=== PATIENT | male | born 1975 | race Caucasian/White ===

== ENCOUNTER 2016-12-15 23:54 | Inpatient (IN) | payer MEDICAID ==
[~2016-12-15] VITALS: Ht 182.9 cm; Wt 112.8 kg
[~2016-12-15 23:54] MED LIST: DOCU250C91 PO; QUET300T2 PO; SERT100T12 PO
[2016-12-16 04:03] VITALS: BP 125/72
[2016-12-16 08:18] VITALS: BP 105/60
[2016-12-16 09:07] LABS: APPEARANCE,URINE CLEAR (CLEAR); GLUCOSE, URINE (UA) NEGATIVE (NEGATIVE); KETONES,URINE >=80 mg/dL (NEGATIVE); LEUKOCYTE ESTERASE ,URINE NEGATIVE (NEGATIVE); OCCULT BLOOD,URINE NEGATIVE (NEGATIVE); PROTEIN,URINE TRACE (NEGATIVE)
[2016-12-16] MEDS: NICOTINE 21 MG/24 HOUR PATCH TD SCH (09:58)
[2016-12-16] MEDS: BACITRACIN 28.4 GM OINTMENT TP SCH ×2 (10:17→16:38)
[2016-12-16 10:38] LABS: RBC,URINE None Seen /HPF (0-2)
[2016-12-16 10:39] LABS: WBC,URINE None Seen /HPF (0-5)
[2016-12-16 10:40] LABS: SQUAMOUS EPITHELIAL CELL,UR Rare /LPF (None Seen)
[2016-12-16] MEDS: LORazepam 2 MG TABLET PO PRN ×2 (11:54→16:08)
[2016-12-16 16:01] VITALS: BP 123/75
[2016-12-16] MEDS: QUEtiapine FUMARATE 100 MG TABLET PO PRN (18:09)
[2016-12-16] MEDS: QUEtiapine FUMARATE 300 MG TABLET PO SCH (20:30)
[2016-12-16] MEDS: ZOLPIDEM TARTRATE 10 MG TABLET PO PRN (21:23)
[2016-12-17 03:33] VITALS: BP 119/69
[2016-12-17] MEDS: LORazepam 2 MG TABLET PO PRN (03:39)
[2016-12-17 08:22] LABS: BASOPHILS % (AUTO) 0.5 % (0.0-2.0); EOSINOPHILS % (AUTO) 6.8 % (1.0-6.0); HEMATOCRIT 38.7 % (41-53); HEMOGLOBIN 12.7 g/dL (13.5-17.5); LYMPHOCYTES # (AUTO) 2.4 K/uL (1.0-4.8); LYMPHOCYTES % (AUTO) 43.1 % (22.0-44.0); MEAN CORPUSCULAR HEMOGLOBIN 29.3 pg (26.0-34.0); MEAN CORPUSCULAR HGB CONC 32.8 G/dL (31.0-37.0); MEAN CORPUSCULAR VOLUME 89 fL (80-100); MONOCYTES # (AUTO) 0.3 K/uL (0.1-1.0); MONOCYTES % (AUTO) 5.4 % (2.0-9.0); NEUTROPHILS # (AUTO) 2.4 K/uL (1.8-7.7); NEUTROPHILS % (AUTO) 44.2 % (40.0-70.0); PLATELET COUNT (AUTO) 263 K/uL (150-450); RED BLOOD CELL COUNT(AUTO) 4.33 MIL/uL (4.50-5.90); RED CELL DISTRIBUTION WIDTH 13.8 % (11.5-14.5); WHITE BLOOD COUNT (AUTO) 5.5 K/uL (4.5-11.0)
[2016-12-17 08:36] LABS: ALANINE AMINOTRANSFERASE 25 U/L (12-78); ALBUMIN 3.1 g/dL (3.4-5.0); ANION GAP 8 mmol/L (8-16); ASPARTATE AMINOTRANSFERASE 17 U/L (15-37); BILIRUBIN,TOTAL 0.2 mg/dL (0.1-1.0); CALCIUM, TOTAL 8.2 mg/dL (8.8-10.5); CARBON DIOXIDE 26 mmol/L (22-29); CHLORIDE 106 mmol/L (98-107); CREATININE 0.67 mg/dL (0.60-1.30); GLOMERULAR FILTR. RATE CALC > 60 mL/min (>60); POTASSIUM 4.1 mmol/L (3.5-5.1); SODIUM SERUM 140 mmol/L (136-145); TOTAL PROTEIN, SERUM 5.9 g/dL (6.4-8.2); UREA NITROGEN, BLOOD 12 mg/dL (7-18)
[2016-12-17 08:58] VITALS: BP 100/68
[2016-12-17] MEDS: NICOTINE 21 MG/24 HOUR PATCH TD SCH (09:12)
[2016-12-17] MEDS: BACITRACIN 28.4 GM OINTMENT TP SCH ×2 (09:12→16:11)
[2016-12-17] MEDS: SERTRALINE HCL 100 MG TABLET PO SCH (09:12)
[2016-12-17 16:15] VITALS: BP 117/69
[2016-12-17 16:53] VITALS: BP 120/72
[2016-12-17] MEDS: IBUPROFEN 600 MG TABLET PO PRN (16:55)
[2016-12-17] MEDS: QUEtiapine FUMARATE 300 MG TABLET PO SCH (20:07)
[2016-12-18 00:23] VITALS: BP 126/64
[2016-12-18] MEDS: NICOTINE 21 MG/24 HOUR PATCH TD SCH (08:27)
[2016-12-18] MEDS: BACITRACIN 28.4 GM OINTMENT TP SCH ×2 (08:27→17:12)
[2016-12-18] MEDS: SERTRALINE HCL 100 MG TABLET PO SCH (08:27)
[2016-12-18 08:53] VITALS: BP 116/61
[2016-12-18] MEDS: LORazepam 2 MG TABLET PO PRN ×2 (10:07→20:06)
[2016-12-18] MEDS: QUEtiapine FUMARATE 100 MG TABLET PO PRN (10:07)
[2016-12-18 16:00] VITALS: BP 118/64
[2016-12-18] MEDS: QUEtiapine FUMARATE 300 MG TABLET PO SCH (20:06)
[2016-12-19 06:36] VITALS: BP 108/78
[2016-12-19] MEDS: NICOTINE 21 MG/24 HOUR PATCH TD SCH (08:23)
[2016-12-19] MEDS: SERTRALINE HCL 100 MG TABLET PO SCH (08:23)
[2016-12-19] MEDS: BACITRACIN 28.4 GM OINTMENT TP SCH ×2 (08:24→17:21)
[2016-12-19] MEDS: LORazepam 2 MG TABLET PO PRN ×2 (10:22→16:40)
[2016-12-19 16:00] VITALS: BP 114/79
[2016-12-19] MEDS: QUEtiapine FUMARATE 100 MG TABLET PO PRN (16:40)
[2016-12-19] MEDS: IBUPROFEN 600 MG TABLET PO PRN (17:22)
[2016-12-19] MEDS: QUEtiapine FUMARATE 300 MG TABLET PO SCH (21:20)
[2016-12-20 00:18] VITALS: BP 101/62
[2016-12-20 08:24] VITALS: BP 118/78
[2016-12-20] MEDS: NICOTINE 21 MG/24 HOUR PATCH TD SCH (08:34)
[2016-12-20] MEDS: SERTRALINE HCL 100 MG TABLET PO SCH (08:34)
[2016-12-20] MEDS: DOCUSATE SODIUM 250 MG CAPSULE PO SCH (08:34)
[2016-12-20] MEDS: BACITRACIN 28.4 GM OINTMENT TP SCH ×2 (11:57→16:04)
[2016-12-20] MEDS: LORazepam 2 MG TABLET PO PRN ×2 (11:58→17:30)
[2016-12-20] MEDS: QUEtiapine FUMARATE 100 MG TABLET PO PRN ×2 (11:58→17:31)
[2016-12-20 16:02] VITALS: BP 107/57
[2016-12-20 17:30] VITALS: BP 110/79
[2016-12-20] MEDS: QUEtiapine FUMARATE 300 MG TABLET PO SCH (20:03)
[2016-12-20] MEDS: ZOLPIDEM TARTRATE 10 MG TABLET PO PRN (20:30)
[2016-12-21 07:30] VITALS: BP 118/66
[2016-12-21 08:22] VITALS: BP 101/77
[2016-12-21] MEDS: BACITRACIN 28.4 GM OINTMENT TP SCH (08:38)
[2016-12-21] MEDS: SERTRALINE HCL 100 MG TABLET PO SCH (08:38)
[2016-12-21] MEDS: NICOTINE 21 MG/24 HOUR PATCH TD SCH (08:38)
[2016-12-21] MEDS: DOCUSATE SODIUM 250 MG CAPSULE PO SCH (08:38)
[2016-12-21] MEDS: LORazepam 2 MG TABLET PO PRN (09:17)
[2016-12-21] MEDS: IBUPROFEN 600 MG TABLET PO PRN (12:42)
== END 2016-12-21 13:00 | disposition home or self-care (01) | DRG 750 ==
LOC: B2S 12-16 03:29
PROVIDERS: ADMIT Psychiatry & Neurology Psychiatry; ATTEND Psychiatry & Neurology Psychiatry
DX: F25.9 Schizoaffective disorder, unspecified (principal); R45.851 Suicidal ideations; E78.5 Hyperlipidemia, unspecified; F17.200 Nicotine dependence, unspecified, uncomplicated
CPT/HCPCS: 80307; 87081

== ENCOUNTER 2017-08-24 13:19 | Inpatient (IN) | payer MEDICAID ==
[~2017-08-24] VITALS: Ht 188 cm; Wt 115.7 kg
[~2017-08-24 13:19] MED LIST changes: +CLON1 PO; -DOCU250C91 PO; +QUET200T PO; -QUET300T2 PO; +RANI150T7 PO
[2017-08-24 13:38] VITALS: BP 125/72
[2017-08-24] MEDS ORDERED: ZOLPIDEM TARTRATE 10 MG TABLET PO PRN (13:45)
[2017-08-24] MEDS ORDERED: BUPR100 PO (14:38)
[2017-08-24] MEDS ORDERED: PROP20 PO (14:38)
[2017-08-24] MEDS ORDERED: PRAZ2 PO (14:38)
[2017-08-24] MEDS ORDERED: BUPR-93 PO (14:49)
[2017-08-24] MEDS ORDERED: PRAZ1 PO (14:49)
[2017-08-24] MEDS ORDERED: INFLUENZA VIRUS VACCINE QVS 2017-18 (3YR+)/PF 60 MCG/0.5 ML SYRINGE IM ONE (15:00)
[2017-08-24 15:08] VITALS: BP 120/72
[2017-08-24 16:11] VITALS: BP 131/74
[2017-08-24] MEDS ORDERED: HALOPERIDOL LACTATE 5 MG/ML VIAL IM ONE (16:30)
[2017-08-24] MEDS ORDERED: DiphenhydrAMINE HCL 50 MG/ML VIAL IM ONE (16:30)
[2017-08-24] MEDS ORDERED: LORazepam 2 MG/ML VIAL IM ONE (16:30)
[2017-08-25 06:01] VITALS: BP 119/71
[2017-08-25 07:44] LABS: BASOPHILS # (AUTO) 0.02 K/uL (0.00-0.20); BASOPHILS % (AUTO) 0.3 % (0.0-2.0); EOSINOPHILS # (AUTO) 0.24 K/uL (0.00-0.70); EOSINOPHILS % (AUTO) 3.47 % (1.0-6.0); HEMATOCRIT 41.6 % (41-53); HEMOGLOBIN 14.3 g/dL (13.5-17.5); HEMOGLOBIN A1C 5.8 % (4.5-6.2); LYMPHOCYTES # (AUTO) 2.5 K/uL (1.0-4.8); MEAN CORPUSCULAR HEMOGLOBIN 30.1 pg (26.0-34.0); MEAN CORPUSCULAR HGB CONC 34.4 G/dL (31.0-37.0); MEAN CORPUSCULAR VOLUME 87 fL (80-100); MONOCYTES # (AUTO) 0.6 K/uL (0.1-1.0); MONOCYTES % (AUTO) 8.7 % (2.0-9.0); NEUTROPHILS # (AUTO) 3.5 K/uL (1.8-7.7); NEUTROPHILS % (AUTO) 51.6 % (40.0-70.0); PLATELET COUNT (AUTO) 294 K/uL (150-450); RED BLOOD CELL COUNT(AUTO) 4.76 MIL/uL (4.50-5.90); RED CELL DISTRIBUTION WIDTH 13.2 % (11.5-14.5)
[2017-08-25 07:49] LABS: AMPHET/METH SCREEN,URINE POSITIVE (NEGATIVE); BARBITURATE SCREEN, URINE NEGATIVE (NEGATIVE); BENZODIAZEPINES SCREEN,URINE NEGATIVE (NEGATIVE); CANNABINOID SCREEN,URINE NEGATIVE (NEGATIVE); COCAINE SCREEN,URINE NEGATIVE (NEGATIVE); METHADONE SCREEN, URINE NEGATIVE (NEGATIVE); OPIATE SCREEN,URINE NEGATIVE (NEGATIVE); PHENCYCLIDINE SCREEN,URINE NEGATIVE (NEGATIVE)
[2017-08-25 07:58] LABS: ALANINE AMINOTRANSFERASE 22 U/L (12-78); ALBUMIN 3.3 g/dL (3.4-5.0); ALKALINE PHOSPHATASE 71 U/L (46-116); ANION GAP 9 mmol/L (8-16); ASPARTATE AMINOTRANSFERASE 11 U/L (15-37); BILIRUBIN,TOTAL 0.5 mg/dL (0.1-1.0); CALCIUM, TOTAL 8.6 mg/dL (8.8-10.5); CARBON DIOXIDE 25 mmol/L (22-29); CHLORIDE 105 mmol/L (98-107); CHOL/HDL RATIO 5.1 (4.2-7.3); CHOLESTEROL 173 mg/dL (131-200); CREATININE 0.83 mg/dL (0.60-1.30); GLOMERULAR FILTR. RATE CALC > 60 mL/min (>60); GLUCOSE,RANDOM 87 mg/dL (70-110); HDL CHOLESTEROL 34 mg/dL (40-60); LDL CHOL (CALC.) 121 mg/dL (0-130); POTASSIUM 3.9 mmol/L (3.5-5.1); SODIUM SERUM 139 mmol/L (136-145); THYROID STIMULATING HORMONE 0.87 uIU/mL (0.36-3.74); TOTAL PROTEIN, SERUM 6.9 g/dL (6.4-8.2); TRIGLYCERIDES 92 mg/dL (15-150); UREA NITROGEN, BLOOD 11 mg/dL (7-18)
[2017-08-25 07:59] LABS: APPEARANCE,URINE CLEAR (CLEAR); BILIRUBIN,URINE NEGATIVE (NEGATIVE); GLUCOSE, URINE (UA) NEGATIVE (NEGATIVE); KETONES,URINE NEGATIVE (NEGATIVE); LEUKOCYTE ESTERASE ,URINE NEGATIVE (NEGATIVE); NITRATE,URINE NEGATIVE (NEGATIVE); OCCULT BLOOD,URINE NEGATIVE (NEGATIVE); PROTEIN,URINE NEGATIVE (NEGATIVE); UROBILINOGEN,URINE 0.2 mg/dL (<=1.0)
[2017-08-25 08:28] VITALS: BP 138/73
[2017-08-25] MEDS ORDERED: ACETAMINOPHEN 325 MG TABLET PO PRN (08:30)
[2017-08-25] MEDS ORDERED: IBUPROFEN 600 MG TABLET PO PRN (08:30)
[2017-08-25] MEDS ORDERED: MAG HYDROX/AL HYDROX/SIMETH ES 30 ML SUSPENSION UDCUP PO PRN (08:30)
[2017-08-25] MEDS ORDERED: PETROLATUM,WHITE 71 GM JELLY TP PRN (08:30)
[2017-08-25] MEDS ORDERED: LOPERAMIDE HCL 2 MG CAPSULE PO PRN (08:30)
[2017-08-25] MEDS ORDERED: ALBUTEROL SULFATE HFA 90 MCG/PUFF 8 GM INHALER IH PRN (08:30)
[2017-08-25] MEDS ORDERED: ONDANSETRON HCL 4 MG TABLET PO PRN (08:30)
[2017-08-25] MEDS ORDERED: BACITRACIN 28.4 GM OINTMENT TP PRN (08:30)
[2017-08-25] MEDS ORDERED: CloNIDine HCL 0.1 MG TABLET PO PRN (08:30)
[2017-08-25] MEDS ORDERED: BENZOCAINE/MENTHOL LOZENGE MM PRN (08:30)
[2017-08-25] MEDS: SERTRALINE HCL 100 MG TABLET PO SCH (11:41)
[2017-08-25] MEDS: LORazepam 2 MG TABLET PO PRN (11:41)
[2017-08-25] MEDS: HALOPERIDOL 5 MG TABLET PO PRN (11:59)
[2017-08-25 16:31] VITALS: BP 116/67
[2017-08-25] MEDS: QUEtiapine FUMARATE 200 MG TABLET PO SCH (20:40)
[2017-08-26 00:30] VITALS: BP 120/60
[2017-08-26 08:37] VITALS: BP_SYST 118; BP_SYST 99; BP_DIAS 48; BP_DIAS 70
[2017-08-26] MEDS: SERTRALINE HCL 100 MG TABLET PO SCH (09:31)
[2017-08-26] MEDS: MAGNESIUM HYDROXIDE SUSPENSION 30 ML UDCUP PO PRN (09:46)
[2017-08-26 16:18] VITALS: BP 130/65
[2017-08-26] MEDS: QUEtiapine FUMARATE 200 MG TABLET PO SCH (20:16)
[2017-08-27 05:41] VITALS: BP 100/66
[2017-08-27 07:59] VITALS: BP 113/67
[2017-08-27] MEDS: SERTRALINE HCL 100 MG TABLET PO SCH (08:13)
[2017-08-27 10:43] VITALS: BP 113/67
[2017-08-27] MEDS: LORazepam 2 MG TABLET PO PRN (11:17)
[2017-08-27] MEDS: MAGNESIUM HYDROXIDE SUSPENSION 30 ML UDCUP PO PRN (11:17)
[2017-08-27] MEDS: HALOPERIDOL 5 MG TABLET PO PRN (12:00)
[2017-08-27 16:02] VITALS: BP 126/78
[2017-08-27] MEDS: QUEtiapine FUMARATE 200 MG TABLET PO SCH (20:08)
[2017-08-28 05:54] VITALS: BP 103/72
[2017-08-28 08:22] VITALS: BP 107/68
[2017-08-28] MEDS: SERTRALINE HCL 100 MG TABLET PO SCH (08:38)
[2017-08-28] MEDS: NICOTINE 21 MG/24 HOUR PATCH TD SCH (08:38)
[2017-08-28] MEDS: LORazepam 2 MG TABLET PO PRN ×2 (10:41→17:06)
[2017-08-28] MEDS: MAGNESIUM HYDROXIDE SUSPENSION 30 ML UDCUP PO PRN (17:07)
[2017-08-28 17:45] VITALS: BP 115/76
[2017-08-28] MEDS: QUEtiapine FUMARATE 200 MG TABLET PO SCH (20:08)
[2017-08-29 00:13] VITALS: BP 101/61
[2017-08-29 08:24] VITALS: BP 122/71
[2017-08-29] MEDS: NICOTINE 21 MG/24 HOUR PATCH TD SCH (08:55)
[2017-08-29] MEDS: SERTRALINE HCL 100 MG TABLET PO SCH (08:55)
[2017-08-29] MEDS: MAGNESIUM HYDROXIDE SUSPENSION 30 ML UDCUP PO PRN (08:55)
[2017-08-29] MEDS: LORazepam 2 MG TABLET PO PRN (08:55)
== END 2017-08-29 13:05 | disposition home or self-care (01) | DRG 750 ==
LOC: B2S 13:42 → EDSTATUS 13:47
PROVIDERS: ADMIT Psychiatry & Neurology Psychiatry; ATTEND Psychiatry & Neurology Psychiatry
DX: F25.9 Schizoaffective disorder, unspecified (principal); E78.5 Hyperlipidemia, unspecified; E66.9 Obesity, unspecified; F12.90 Cannabis use, unspecified, uncomplicated; F17.210 Nicotine dependence, cigarettes, uncomplicated; G47.00 Insomnia, unspecified; K21.9 Gastro-esophageal reflux disease without esophagitis; K59.00 Constipation, unspecified; Z68.32 Body mass index [BMI] 32.0-32.9, adult
CPT/HCPCS: 83036; 84439; 84443; 90471; J1200; J1630; J2060

== ENCOUNTER 2017-10-18 17:30 | Inpatient (IN) | payer MEDICAID ==
[~2017-10-18] VITALS: Ht 182.9 cm; Wt 109.3 kg
[~2017-10-18 17:30] MED LIST changes: -CLON1 PO; -RANI150T7 PO
[2017-10-18 18:24] VITALS: BP 120/74
[2017-10-18] MEDS: LORazepam 2 MG TABLET PO PRN (18:41)
[2017-10-18] MEDS ORDERED: INFLUENZA VIRUS VACCINE QVS 2017-18 (3YR+)/PF 60 MCG/0.5 ML SYRINGE IM ONE (18:45)
[2017-10-18] MEDS ORDERED: ACETAMINOPHEN 325 MG TABLET PO PRN (19:30)
[2017-10-18] MEDS: QUEtiapine FUMARATE 200 MG TABLET PO SCH (21:00)
[2017-10-19 06:02] VITALS: BP 118/65
[2017-10-19 08:00] VITALS: BP 108/55
[2017-10-19] MEDS ORDERED: MAG HYDROX/AL HYDROX/SIMETH ES 30 ML SUSPENSION UDCUP PO PRN (08:15)
[2017-10-19] MEDS ORDERED: LOPERAMIDE HCL 2 MG CAPSULE PO PRN (08:15)
[2017-10-19] MEDS ORDERED: MAGNESIUM HYDROXIDE SUSPENSION 30 ML UDCUP PO PRN (08:15)
[2017-10-19] MEDS ORDERED: ALBUTEROL SULFATE HFA 90 MCG/PUFF 8 GM INHALER IH PRN (08:15)
[2017-10-19] MEDS ORDERED: PETROLATUM,WHITE 71 GM JELLY TP PRN (08:15)
[2017-10-19] MEDS ORDERED: ONDANSETRON HCL 4 MG TABLET PO PRN (08:15)
[2017-10-19] MEDS ORDERED: CloNIDine HCL 0.1 MG TABLET PO PRN (08:15)
[2017-10-19] MEDS ORDERED: BACITRACIN 28.4 GM OINTMENT TP PRN (08:15)
[2017-10-19] MEDS ORDERED: BENZOCAINE/MENTHOL LOZENGE MM PRN (08:15)
[2017-10-19] MEDS ORDERED: ACETAMINOPHEN 325 MG TABLET PO PRN (08:15)
[2017-10-19 08:21] LABS: BASOPHILS % (AUTO) 0.5 % (0.0-2.0); HEMATOCRIT 39.7 % (41-53); HEMOGLOBIN 13.7 g/dL (13.5-17.5); LYMPHOCYTES # (AUTO) 1.9 K/uL (1.0-4.8); LYMPHOCYTES % (AUTO) 26.8 % (22.0-44.0); MEAN CORPUSCULAR HEMOGLOBIN 29.8 pg (26.0-34.0); MEAN CORPUSCULAR HGB CONC 34.4 G/dL (31.0-37.0); MEAN CORPUSCULAR VOLUME 87 fL (80-100); MONOCYTES # (AUTO) 0.6 K/uL (0.1-1.0); MONOCYTES % (AUTO) 8.3 % (2.0-9.0); NEUTROPHILS % (AUTO) 58.4 % (40.0-70.0); PLATELET COUNT (AUTO) 307 K/uL (150-450); RED BLOOD CELL COUNT(AUTO) 4.57 MIL/uL (4.50-5.90); RED CELL DISTRIBUTION WIDTH 13.8 % (11.5-14.5)
[2017-10-19 09:12] LABS: ALANINE AMINOTRANSFERASE 18 U/L (12-78); ALBUMIN 3.3 g/dL (3.4-5.0); ALKALINE PHOSPHATASE 88 U/L (46-116); ANION GAP 9 mmol/L (8-16); ASPARTATE AMINOTRANSFERASE 15 U/L (15-37); BILIRUBIN,TOTAL 0.5 mg/dL (0.1-1.0); CALCIUM, TOTAL 8.6 mg/dL (8.8-10.5); CARBON DIOXIDE 25 mmol/L (22-29); CHLORIDE 105 mmol/L (98-107); CHOLESTEROL 155 mg/dL (131-200); CREATININE 0.67 mg/dL (0.60-1.30); FREE T4 (FREE THYROXINE) 0.85 ng/dL (0.76-1.46); GLOMERULAR FILTR. RATE CALC > 60 mL/min (>60); GLUCOSE,RANDOM 81 mg/dL (70-110); HDL CHOLESTEROL 31 mg/dL (40-60); LDL CHOL (CALC.) 106 mg/dL (0-130); POTASSIUM 4.4 mmol/L (3.5-5.1); SODIUM SERUM 139 mmol/L (136-145); THYROID STIMULATING HORMONE 1.08 uIU/mL (0.36-3.74); TOTAL PROTEIN, SERUM 6.3 g/dL (6.4-8.2); TRIGLYCERIDES 92 mg/dL (15-150); UREA NITROGEN, BLOOD 14 mg/dL (7-18)
[2017-10-19] MEDS: SERTRALINE HCL 100 MG TABLET PO SCH (09:50)
[2017-10-19 09:55] LABS: HEMOGLOBIN A1C 5.7 % (4.5-6.2)
[2017-10-19 11:50] VITALS: BP 109/64
[2017-10-19] MEDS: LORazepam 2 MG TABLET PO PRN (11:50)
[2017-10-19] MEDS: IBUPROFEN 600 MG TABLET PO PRN (11:50)
[2017-10-19] MEDS ORDERED: ACYCLOVIR 200 MG CAPSULE PO SCH (12:15)
[2017-10-19] MEDS: BACITRACIN 28.4 GM OINTMENT TP SCH (14:57)
[2017-10-19] MEDS: CEPHALEXIN MONOHYDRATE 500 MG CAPSULE PO SCH (16:33)
[2017-10-19] MEDS: ACYCLOVIR 200 MG CAPSULE PO SCH (16:34)
[2017-10-19] MEDS: DOCOSANOL 10% 2 GM CREAM TP SCH (17:00)
[2017-10-19] MEDS: QUEtiapine FUMARATE 200 MG TABLET PO SCH (20:33)
[2017-10-19] MEDS: ZOLPIDEM TARTRATE 10 MG TABLET PO PRN (21:49)
[2017-10-20 06:54] VITALS: BP 117/62
[2017-10-20 08:41] VITALS: BP_SYST 68; BP_SYST 93; BP_DIAS 47; BP_DIAS 56
[2017-10-20] MEDS: DOCOSANOL 10% 2 GM CREAM TP SCH ×2 (09:00→21:27)
[2017-10-20] MEDS: SERTRALINE HCL 100 MG TABLET PO SCH (09:49)
[2017-10-20] MEDS: ACYCLOVIR 200 MG CAPSULE PO SCH ×3 (09:50→16:02)
[2017-10-20] MEDS: CEPHALEXIN MONOHYDRATE 500 MG CAPSULE PO SCH ×2 (09:50→16:01)
[2017-10-20] MEDS: BACITRACIN 28.4 GM OINTMENT TP SCH (09:52)
[2017-10-20] MEDS: LORazepam 2 MG TABLET PO PRN (14:40)
[2017-10-20] MEDS: IBUPROFEN 600 MG TABLET PO PRN (14:45)
[2017-10-20 14:48] VITALS: BP 98/66
[2017-10-20 16:12] VITALS: BP 111/58
[2017-10-20] MEDS: QUEtiapine FUMARATE 200 MG TABLET PO SCH (20:31)
[2017-10-21 01:15] VITALS: BP 118/63
[2017-10-21 08:25] VITALS: BP 112/66
[2017-10-21] MEDS: DOCOSANOL 10% 2 GM CREAM TP SCH ×2 (09:45→16:15)
[2017-10-21] MEDS: CEPHALEXIN MONOHYDRATE 500 MG CAPSULE PO SCH ×2 (09:45→16:14)
[2017-10-21] MEDS: BACITRACIN 28.4 GM OINTMENT TP SCH (09:45)
[2017-10-21] MEDS: ACYCLOVIR 200 MG CAPSULE PO SCH ×3 (09:45→16:15)
[2017-10-21] MEDS: SERTRALINE HCL 100 MG TABLET PO SCH (09:45)
[2017-10-21] MEDS: HALOPERIDOL 5 MG TABLET PO PRN (15:32)
[2017-10-21] MEDS: LORazepam 2 MG TABLET PO PRN (15:53)
[2017-10-21] MEDS: IBUPROFEN 600 MG TABLET PO PRN (15:53)
[2017-10-21 16:12] VITALS: BP 120/75
[2017-10-21] MEDS: QUEtiapine FUMARATE 200 MG TABLET PO SCH (20:26)
[2017-10-21] MEDS: ZOLPIDEM TARTRATE 10 MG TABLET PO PRN (20:42)
[2017-10-22 04:49] VITALS: BP 117/69
[2017-10-22 08:38] VITALS: BP 117/60
[2017-10-22] MEDS: SERTRALINE HCL 100 MG TABLET PO SCH (09:20)
[2017-10-22] MEDS: ACYCLOVIR 200 MG CAPSULE PO SCH ×3 (09:21→16:33)
[2017-10-22] MEDS: DOCOSANOL 10% 2 GM CREAM TP SCH ×2 (09:21→16:34)
[2017-10-22] MEDS: BACITRACIN 28.4 GM OINTMENT TP SCH (09:21)
[2017-10-22] MEDS: CEPHALEXIN MONOHYDRATE 500 MG CAPSULE PO SCH ×2 (09:21→16:33)
[2017-10-22 16:25] VITALS: BP 107/62
[2017-10-22] MEDS: QUEtiapine FUMARATE 200 MG TABLET PO SCH (20:33)
[2017-10-23 06:39] VITALS: BP 109/64
[2017-10-23 08:52] VITALS: BP 119/70
[2017-10-23] MEDS: SERTRALINE HCL 100 MG TABLET PO SCH (09:08)
[2017-10-23] MEDS: CEPHALEXIN MONOHYDRATE 500 MG CAPSULE PO SCH ×2 (09:09→16:07)
[2017-10-23] MEDS: HALOPERIDOL 5 MG TABLET PO PRN (09:09)
[2017-10-23] MEDS: IBUPROFEN 600 MG TABLET PO PRN (09:09)
[2017-10-23] MEDS: ACYCLOVIR 200 MG CAPSULE PO SCH ×3 (09:09→16:07)
[2017-10-23] MEDS: LORazepam 2 MG TABLET PO PRN (09:09)
[2017-10-23] MEDS: DOCOSANOL 10% 2 GM CREAM TP SCH ×2 (10:22→17:14)
[2017-10-23] MEDS: BACITRACIN 28.4 GM OINTMENT TP SCH (10:22)
[2017-10-23 16:36] VITALS: BP 111/61
[2017-10-23] MEDS: QUEtiapine FUMARATE 200 MG TABLET PO SCH (20:13)
[2017-10-24 06:30] VITALS: BP 100/62
[2017-10-24 07:27] VITALS: BP 121/72
[2017-10-24] MEDS: SERTRALINE HCL 100 MG TABLET PO SCH (08:13)
[2017-10-24] MEDS: IBUPROFEN 600 MG TABLET PO PRN (08:13)
[2017-10-24] MEDS: LORazepam 2 MG TABLET PO PRN (08:13)
[2017-10-24] MEDS: ACYCLOVIR 200 MG CAPSULE PO SCH (08:13)
[2017-10-24] MEDS: HALOPERIDOL 5 MG TABLET PO PRN ×2 (08:13→15:54)
[2017-10-24] MEDS: CEPHALEXIN MONOHYDRATE 500 MG CAPSULE PO SCH (08:13)
[2017-10-24 08:36] VITALS: BP 121/82
[2017-10-24] MEDS: BACITRACIN 28.4 GM OINTMENT TP SCH (10:01)
[2017-10-24] MEDS: DOCOSANOL 10% 2 GM CREAM TP SCH (10:01)
[2017-10-24 16:12] VITALS: BP 116/68
[2017-10-24] MEDS ORDERED: CEPH-582 PO (16:41)
== END 2017-10-24 20:15 | disposition home or self-care (01) | DRG 750 ==
LOC: B2S 17:46
PROVIDERS: ADMIT Psychiatry & Neurology Psychiatry; ATTEND Psychiatry & Neurology Psychiatry
PROC: 3E0234Z Introduction of Serum, Toxoid and Vaccine into Muscle, Percutaneous Approach (ICD-10-PCS; principal; 2017-10-18)
DX: F25.9 Schizoaffective disorder, unspecified (principal); R45.851 Suicidal ideations; F29 Unspecified psychosis not due to a substance or known physiological condition; F32.9 Major depressive disorder, single episode, unspecified; F41.9 Anxiety disorder, unspecified; G47.00 Insomnia, unspecified; J44.9 Chronic obstructive pulmonary disease, unspecified; K21.9 Gastro-esophageal reflux disease without esophagitis; K59.00 Constipation, unspecified; F17.200 Nicotine dependence, unspecified, uncomplicated; F12.90 Cannabis use, unspecified, uncomplicated; B08.4 Enteroviral vesicular stomatitis with exanthem; B00.9 Herpesviral infection, unspecified; Z23 Encounter for immunization; Z79.899 Other long term (current) drug therapy
CPT/HCPCS: 83036; 84439; 84443

== ENCOUNTER 2017-11-11 12:17 | Inpatient (IN) | payer MEDICAID ==
[~2017-11-11] VITALS: Ht 182.9 cm; Wt 108.0 kg
[~2017-11-11 12:17] MED LIST changes: +CEPH-582 PO
[2017-11-11 13:20] VITALS: BP 115/65
[2017-11-11] MEDS ORDERED: CLON1 PO (14:03)
[2017-11-11] MEDS ORDERED: BUPR150SR PO (14:03)
[2017-11-11] MEDS ORDERED: PROP20TA18 PO (14:03)
[2017-11-11] MEDS ORDERED: CEPH500 PO (14:03)
[2017-11-11] MEDS ORDERED: VALA500T PO (14:03)
[2017-11-11] MEDS ORDERED: INFLUENZA VIRUS VACCINE QVS 2017-18 (3YR+)/PF 60 MCG/0.5 ML SYRINGE IM ONE (14:15)
[2017-11-11] MEDS: HALOPERIDOL 5 MG TABLET PO PRN (14:16)
[2017-11-11 16:35] VITALS: BP 112/75
[2017-11-11 17:52] VITALS: BP 112/80
[2017-11-11] MEDS: QUEtiapine FUMARATE 200 MG TABLET PO SCH (21:00)
[2017-11-11 21:39] VITALS: BP 118/75
[2017-11-12 03:05] VITALS: BP 120/69
[2017-11-12 08:26] VITALS: BP 102/60
[2017-11-12] MEDS: SERTRALINE HCL 100 MG TABLET PO SCH (08:54)
[2017-11-12] MEDS: NICOTINE 21 MG/24 HOUR PATCH TD SCH (08:54)
[2017-11-12] MEDS ORDERED: IBUPROFEN 600 MG TABLET PO PRN (10:00)
[2017-11-12] MEDS ORDERED: BENZOCAINE/MENTHOL LOZENGE MM PRN (10:00)
[2017-11-12] MEDS ORDERED: ONDANSETRON HCL 4 MG TABLET PO PRN (10:00)
[2017-11-12] MEDS ORDERED: LOPERAMIDE HCL 2 MG CAPSULE PO PRN (10:00)
[2017-11-12] MEDS ORDERED: ALBUTEROL SULFATE HFA 90 MCG/PUFF 8 GM INHALER IH PRN (10:00)
[2017-11-12] MEDS ORDERED: MAGNESIUM HYDROXIDE SUSPENSION 30 ML UDCUP PO PRN (10:00)
[2017-11-12] MEDS ORDERED: BACITRACIN 28.4 GM OINTMENT TP PRN (10:00)
[2017-11-12] MEDS ORDERED: MAG HYDROX/AL HYDROX/SIMETH ES 30 ML SUSPENSION UDCUP PO PRN (10:00)
[2017-11-12] MEDS ORDERED: PETROLATUM,WHITE 71 GM JELLY TP PRN (10:00)
[2017-11-12] MEDS ORDERED: CloNIDine HCL 0.1 MG TABLET PO PRN (10:00)
[2017-11-12] MEDS ORDERED: ACETAMINOPHEN 325 MG TABLET PO PRN (10:00)
[2017-11-12] MEDS: MUPIROCIN CALCIUM 2% 15 GM CREAM TP SCH (16:44)
[2017-11-12 16:47] VITALS: BP 106/75
[2017-11-12] MEDS: DOCOSANOL 10% 2 GM CREAM TP SCH ×2 (18:00→22:11)
[2017-11-12] MEDS: QUEtiapine FUMARATE 200 MG TABLET PO SCH (20:26)
[2017-11-13] MEDS: DOCOSANOL 10% 2 GM CREAM TP SCH ×5 (06:00→20:42)
[2017-11-13 06:13] VITALS: BP 113/73
[2017-11-13 08:32] VITALS: BP 100/74
[2017-11-13] MEDS: SERTRALINE HCL 100 MG TABLET PO SCH (08:47)
[2017-11-13] MEDS: NICOTINE 21 MG/24 HOUR PATCH TD SCH (08:47)
[2017-11-13] MEDS: MUPIROCIN CALCIUM 2% 15 GM CREAM TP SCH (08:48)
[2017-11-13] MEDS: LORazepam 2 MG TABLET PO PRN ×2 (11:12→17:14)
[2017-11-13] MEDS: HALOPERIDOL 5 MG TABLET PO PRN ×2 (11:12→17:16)
[2017-11-13 16:00] VITALS: BP 110/66
[2017-11-13] MEDS: MUPIROCIN CALCIUM 2% 22 GM OINTMENT NASAL SCH (17:15)
[2017-11-13] MEDS: MUPIROCIN CALCIUM 2% 22 GM OINTMENT TP SCH (17:15)
[2017-11-13] MEDS: QUEtiapine FUMARATE 200 MG TABLET PO SCH (20:42)
[2017-11-13] MEDS: ZOLPIDEM TARTRATE 10 MG TABLET PO PRN (20:43)
[2017-11-14] MEDS: DOCOSANOL 10% 2 GM CREAM TP SCH ×5 (06:00→21:57)
[2017-11-14 08:24] LABS: BASOPHILS % (AUTO) 0.6 % (0.0-2.0); EOSINOPHILS % (AUTO) 5.5 % (1.0-6.0); HEMATOCRIT 45.1 % (41-53); HEMOGLOBIN 15.2 g/dL (13.5-17.5); LYMPHOCYTES % (AUTO) 47.6 % (22.0-44.0); MEAN CORPUSCULAR HEMOGLOBIN 29.6 pg (26.0-34.0); MEAN CORPUSCULAR HGB CONC 33.8 G/dL (31.0-37.0); MEAN CORPUSCULAR VOLUME 88 fL (80-100); MONOCYTES # (AUTO) 0.4 K/uL (0.1-1.0); MONOCYTES % (AUTO) 6.5 % (2.0-9.0); NEUTROPHILS # (AUTO) 2.5 K/uL (1.8-7.7); NEUTROPHILS % (AUTO) 39.8 % (40.0-70.0); PLATELET COUNT (AUTO) 294 K/uL (150-450); RED BLOOD CELL COUNT(AUTO) 5.15 MIL/uL (4.50-5.90); RED CELL DISTRIBUTION WIDTH 14.2 % (11.5-14.5)
[2017-11-14 08:30] LABS: HEMOGLOBIN A1C 5.7 % (4.5-6.2)
[2017-11-14 08:45] LABS: ALANINE AMINOTRANSFERASE 19 U/L (12-78); ALBUMIN 3.4 g/dL (3.4-5.0); ALKALINE PHOSPHATASE 86 U/L (46-116); ANION GAP 9 mmol/L (8-16); ASPARTATE AMINOTRANSFERASE 12 U/L (15-37); BILIRUBIN,TOTAL 0.3 mg/dL (0.1-1.0); CARBON DIOXIDE 29 mmol/L (22-29); CHLORIDE 103 mmol/L (98-107); CHOL/HDL RATIO 5.1 (4.2-7.3); CHOLESTEROL 178 mg/dL (131-200); CREATININE 0.78 mg/dL (0.60-1.30); FREE T4 (FREE THYROXINE) 0.56 ng/dL (0.76-1.46); GLOMERULAR FILTR. RATE CALC > 60 mL/min (>60); GLUCOSE,RANDOM 92 mg/dL (70-110); HDL CHOLESTEROL 35 mg/dL (40-60); LDL CHOL (CALC.) 121 mg/dL (0-130); POTASSIUM 3.9 mmol/L (3.5-5.1); SODIUM SERUM 141 mmol/L (136-145); TRIGLYCERIDES 109 mg/dL (15-150); UREA NITROGEN, BLOOD 17 mg/dL (7-18)
[2017-11-14] MEDS: NICOTINE 21 MG/24 HOUR PATCH TD SCH (10:31)
[2017-11-14] MEDS: MUPIROCIN CALCIUM 2% 22 GM OINTMENT NASAL SCH ×2 (10:31→16:59)
[2017-11-14] MEDS: SERTRALINE HCL 100 MG TABLET PO SCH (10:31)
[2017-11-14] MEDS: MUPIROCIN CALCIUM 2% 22 GM OINTMENT TP SCH ×2 (10:32→16:59)
[2017-11-14 16:00] VITALS: BP 114/68
[2017-11-14] MEDS: HALOPERIDOL 5 MG TABLET PO PRN (16:59)
[2017-11-14] MEDS: LORazepam 2 MG TABLET PO PRN (16:59)
[2017-11-14] MEDS: ZOLPIDEM TARTRATE 10 MG TABLET PO PRN (20:43)
[2017-11-14] MEDS: QUEtiapine FUMARATE 200 MG TABLET PO SCH (20:43)
[2017-11-15] MEDS: DOCOSANOL 10% 2 GM CREAM TP SCH ×5 (06:00→22:21)
[2017-11-15 08:13] VITALS: BP 110/67
[2017-11-15] MEDS: SERTRALINE HCL 100 MG TABLET PO SCH (09:56)
[2017-11-15] MEDS: NICOTINE 21 MG/24 HOUR PATCH TD SCH (09:56)
[2017-11-15] MEDS: MUPIROCIN CALCIUM 2% 22 GM OINTMENT TP SCH ×2 (09:57→16:30)
[2017-11-15] MEDS: MUPIROCIN CALCIUM 2% 22 GM OINTMENT NASAL SCH ×2 (09:57→16:30)
[2017-11-15] MEDS: LORazepam 2 MG TABLET PO PRN (10:21)
[2017-11-15] MEDS: HALOPERIDOL 5 MG TABLET PO PRN (10:21)
[2017-11-15 16:29] VITALS: BP 105/65
[2017-11-15] MEDS: ZOLPIDEM TARTRATE 10 MG TABLET PO PRN (20:16)
[2017-11-15] MEDS: QUEtiapine FUMARATE 200 MG TABLET PO SCH (20:16)
[2017-11-16] MEDS: HALOPERIDOL 5 MG TABLET PO PRN ×2 (04:18→16:29)
[2017-11-16] MEDS: LORazepam 2 MG TABLET PO PRN ×3 (04:18→16:29)
[2017-11-16] MEDS: DOCOSANOL 10% 2 GM CREAM TP SCH ×5 (06:00→21:10)
[2017-11-16 06:35] VITALS: BP 111/64
[2017-11-16 08:00] VITALS: BP 118/64
[2017-11-16] MEDS: MUPIROCIN CALCIUM 2% 22 GM OINTMENT TP SCH ×2 (09:28→16:30)
[2017-11-16] MEDS: MUPIROCIN CALCIUM 2% 22 GM OINTMENT NASAL SCH ×2 (09:28→16:30)
[2017-11-16] MEDS: NICOTINE 21 MG/24 HOUR PATCH TD SCH (09:29)
[2017-11-16] MEDS: SERTRALINE HCL 100 MG TABLET PO SCH (09:29)
[2017-11-16] MEDS ORDERED: MAGNESIUM CITRATE 300 ML ORAL SOLUTION PO ONE (10:45)
[2017-11-16 11:35] VITALS: BP 120/82
[2017-11-16 16:00] VITALS: BP 112/67
[2017-11-16] MEDS: QUEtiapine FUMARATE 200 MG TABLET PO SCH (21:10)
[2017-11-17 00:25] VITALS: BP 111/67
[2017-11-17] MEDS: LORazepam 2 MG TABLET PO PRN ×3 (00:28→23:47)
[2017-11-17] MEDS: HALOPERIDOL 5 MG TABLET PO PRN ×3 (00:28→23:47)
[2017-11-17] MEDS: DOCOSANOL 10% 2 GM CREAM TP SCH ×5 (05:55→22:14)
[2017-11-17 08:14] VITALS: BP 112/62
[2017-11-17] MEDS: SERTRALINE HCL 100 MG TABLET PO SCH (08:59)
[2017-11-17] MEDS: NICOTINE 21 MG/24 HOUR PATCH TD SCH (08:59)
[2017-11-17] MEDS: MUPIROCIN CALCIUM 2% 22 GM OINTMENT NASAL SCH ×2 (08:59→16:58)
[2017-11-17] MEDS: MUPIROCIN CALCIUM 2% 22 GM OINTMENT TP SCH ×2 (09:00→16:58)
[2017-11-17] MEDS ORDERED: MAGNESIUM CITRATE 300 ML ORAL SOLUTION PO ONE (13:00)
[2017-11-17 16:00] VITALS: BP 116/72
[2017-11-17] MEDS: QUEtiapine FUMARATE 200 MG TABLET PO SCH (20:44)
[2017-11-17] MEDS: ZOLPIDEM TARTRATE 10 MG TABLET PO PRN (20:44)
[2017-11-17 23:49] VITALS: BP 146/72
[2017-11-18] MEDS: DOCOSANOL 10% 2 GM CREAM TP SCH ×4 (06:00→18:00)
[2017-11-18 08:10] VITALS: BP 116/66
[2017-11-18] MEDS: HALOPERIDOL 5 MG TABLET PO PRN (08:27)
[2017-11-18] MEDS: SERTRALINE HCL 100 MG TABLET PO SCH (08:27)
[2017-11-18] MEDS: LORazepam 2 MG TABLET PO PRN (08:27)
[2017-11-18] MEDS: NICOTINE 21 MG/24 HOUR PATCH TD SCH (08:27)
[2017-11-18] MEDS: MUPIROCIN CALCIUM 2% 22 GM OINTMENT TP SCH ×2 (08:29→17:00)
== END 2017-11-18 19:05 | disposition home or self-care (01) | DRG 750 ==
LOC: B2S 13:25 → B3A 11-13 12:22
PROVIDERS: ADMIT Psychiatry & Neurology Psychiatry; ATTEND Psychiatry & Neurology Psychiatry
DX: F25.9 Schizoaffective disorder, unspecified (principal); R45.851 Suicidal ideations; J44.9 Chronic obstructive pulmonary disease, unspecified; F17.200 Nicotine dependence, unspecified, uncomplicated; F12.90 Cannabis use, unspecified, uncomplicated; G47.00 Insomnia, unspecified; K21.9 Gastro-esophageal reflux disease without esophagitis; K59.00 Constipation, unspecified; L30.9 Dermatitis, unspecified; F41.9 Anxiety disorder, unspecified; Z28.21 Immunization not carried out because of patient refusal; Z71.6 Tobacco abuse counseling; Z71.51 Drug abuse counseling and surveillance of drug abuser; Z79.899 Other long term (current) drug therapy
CPT/HCPCS: 83036; 84439; 84443; 87081

== ENCOUNTER 2017-11-26 16:12 | Inpatient (IN) | payer MEDICAID ==
[~2017-11-26] VITALS: Ht 182.9 cm; Wt 103.9 kg
[~2017-11-26 16:12] MED LIST changes: -CEPH-582 PO
[2017-11-26] MEDS ORDERED: LORazepam 2 MG/ML VIAL IM ONE (17:30)
[2017-11-26] MEDS ORDERED: ZOLPIDEM TARTRATE 10 MG TABLET PO PRN (17:30)
[2017-11-26 18:02] VITALS: BP 130/80
[2017-11-26] MEDS: QUEtiapine FUMARATE 200 MG TABLET PO SCH (21:04)
[2017-11-26] MEDS ORDERED: INFLUENZA VIRUS VACCINE QVS 2017-18 (3YR+)/PF 60 MCG/0.5 ML SYRINGE IM ONE (21:45)
[2017-11-26 22:00] VITALS: BP 121/69
[2017-11-26 22:16] LABS: APPEARANCE,URINE CLEAR (CLEAR); BILIRUBIN,URINE NEGATIVE (NEGATIVE); GLUCOSE, URINE (UA) NEGATIVE (NEGATIVE); KETONES,URINE NEGATIVE (NEGATIVE); LEUKOCYTE ESTERASE ,URINE NEGATIVE (NEGATIVE); NITRATE,URINE NEGATIVE (NEGATIVE); OCCULT BLOOD,URINE NEGATIVE (NEGATIVE); PH,URINE 7.5 (5.0-8.0); PROTEIN,URINE NEGATIVE (NEGATIVE); UROBILINOGEN,URINE 0.2 mg/dL (<=1.0)
[2017-11-26] MEDS ORDERED: MAG HYDROX/AL HYDROX/SIMETH ES 30 ML SUSPENSION UDCUP PO PRN (22:30)
[2017-11-26] MEDS ORDERED: BACITRACIN 28.4 GM OINTMENT TP PRN (22:30)
[2017-11-26] MEDS ORDERED: ONDANSETRON HCL 4 MG TABLET PO PRN (22:30)
[2017-11-26] MEDS ORDERED: ACETAMINOPHEN 325 MG TABLET PO PRN (22:30)
[2017-11-26] MEDS ORDERED: PETROLATUM,WHITE 71 GM JELLY TP PRN (22:30)
[2017-11-26] MEDS ORDERED: MAGNESIUM HYDROXIDE SUSPENSION 30 ML UDCUP PO PRN (22:30)
[2017-11-26] MEDS ORDERED: IBUPROFEN 600 MG TABLET PO PRN (22:30)
[2017-11-26] MEDS ORDERED: BENZOCAINE/MENTHOL LOZENGE MM PRN (22:30)
[2017-11-26] MEDS ORDERED: ALBUTEROL SULFATE HFA 90 MCG/PUFF 8 GM INHALER IH PRN (22:30)
[2017-11-26] MEDS ORDERED: CloNIDine HCL 0.1 MG TABLET PO PRN (22:30)
[2017-11-26] MEDS ORDERED: LOPERAMIDE HCL 2 MG CAPSULE PO PRN (22:30)
[2017-11-27 06:36] LABS: BASOPHILS % (AUTO) 0.6 % (0.0-2.0); EOSINOPHILS % (AUTO) 6.2 % (1.0-6.0); HEMATOCRIT 39.8 % (41-53); HEMOGLOBIN 13.5 g/dL (13.5-17.5); LYMPHOCYTES # (AUTO) 3.1 K/uL (1.0-4.8); LYMPHOCYTES % (AUTO) 52.6 % (22.0-44.0); MEAN CORPUSCULAR HEMOGLOBIN 29.7 pg (26.0-34.0); MEAN CORPUSCULAR HGB CONC 33.9 G/dL (31.0-37.0); MEAN CORPUSCULAR VOLUME 88 fL (80-100); MONOCYTES # (AUTO) 0.5 K/uL (0.1-1.0); MONOCYTES % (AUTO) 8.7 % (2.0-9.0); NEUTROPHILS # (AUTO) 1.9 K/uL (1.8-7.7); NEUTROPHILS % (AUTO) 31.9 % (40.0-70.0); PLATELET COUNT (AUTO) 246 K/uL (150-450); RED BLOOD CELL COUNT(AUTO) 4.53 MIL/uL (4.50-5.90); RED CELL DISTRIBUTION WIDTH 13.6 % (11.5-14.5)
[2017-11-27 06:58] LABS: ALANINE AMINOTRANSFERASE 20 U/L (12-78); ALBUMIN 3.3 g/dL (3.4-5.0); ALKALINE PHOSPHATASE 67 U/L (46-116); ANION GAP 8 mmol/L (8-16); ASPARTATE AMINOTRANSFERASE 11 U/L (15-37); BILIRUBIN,TOTAL 0.2 mg/dL (0.1-1.0); CALCIUM, TOTAL 8.8 mg/dL (8.8-10.5); CARBON DIOXIDE 27 mmol/L (22-29); CHLORIDE 109 mmol/L (98-107); CHOL/HDL RATIO 4.8 (4.2-7.3); CHOLESTEROL 148 mg/dL (131-200); CREATININE 0.95 mg/dL (0.60-1.30); FREE T4 (FREE THYROXINE) 0.63 ng/dL (0.76-1.46); GLOMERULAR FILTR. RATE CALC > 60 mL/min (>60); GLUCOSE,RANDOM 91 mg/dL (70-110); HDL CHOLESTEROL 31 mg/dL (40-60); LDL CHOL (CALC.) 98 mg/dL (0-130); POTASSIUM 3.9 mmol/L (3.5-5.1); SODIUM SERUM 144 mmol/L (136-145); THYROID STIMULATING HORMONE 1.13 uIU/mL (0.36-3.74); TOTAL PROTEIN, SERUM 6.3 g/dL (6.4-8.2); TRIGLYCERIDES 95 mg/dL (15-150); UREA NITROGEN, BLOOD 12 mg/dL (7-18)
[2017-11-27 07:15] LABS: HEMOGLOBIN A1C 5.4 % (4.5-6.2)
[2017-11-27 08:51] VITALS: BP 113/56
[2017-11-27] MEDS: DOCUSATE SODIUM 100 MG CAPSULE PO SCH (09:22)
[2017-11-27] MEDS: SERTRALINE HCL 100 MG TABLET PO SCH (09:22)
[2017-11-27] MEDS: OMEPRAZOLE 20 MG CAPSULE PO SCH (09:22)
[2017-11-27] MEDS: HALOPERIDOL 5 MG TABLET PO PRN (09:52)
[2017-11-27] MEDS: NICOTINE 21 MG/24 HOUR PATCH TD SCH (09:52)
[2017-11-27] MEDS: LORazepam 2 MG TABLET PO PRN (09:52)
[2017-11-27 17:26] VITALS: BP 110/65
[2017-11-27] MEDS: QUEtiapine FUMARATE 200 MG TABLET PO SCH (21:04)
[2017-11-28 08:47] VITALS: BP 121/65
[2017-11-28] MEDS: SERTRALINE HCL 100 MG TABLET PO SCH (10:57)
[2017-11-28] MEDS: LORazepam 2 MG TABLET PO PRN ×2 (10:58→14:58)
[2017-11-28] MEDS: OMEPRAZOLE 20 MG CAPSULE PO SCH (10:58)
[2017-11-28] MEDS: DOCUSATE SODIUM 100 MG CAPSULE PO SCH (10:58)
[2017-11-28] MEDS: NICOTINE 21 MG/24 HOUR PATCH TD SCH (10:59)
[2017-11-28] MEDS: HALOPERIDOL 5 MG TABLET PO PRN (11:50)
[2017-11-28 16:44] VITALS: BP 111/70
[2017-11-28] MEDS: QUEtiapine FUMARATE 200 MG TABLET PO SCH (20:02)
[2017-11-29 08:57] VITALS: BP 114/63
[2017-11-29] MEDS: SERTRALINE HCL 100 MG TABLET PO SCH (09:58)
[2017-11-29] MEDS: DOCUSATE SODIUM 100 MG CAPSULE PO SCH (09:58)
[2017-11-29] MEDS: OMEPRAZOLE 20 MG CAPSULE PO SCH (09:58)
[2017-11-29] MEDS: NICOTINE 21 MG/24 HOUR PATCH TD SCH (10:02)
[2017-11-29] MEDS: LORazepam 2 MG TABLET PO PRN (15:01)
[2017-11-29] MEDS: HALOPERIDOL 5 MG TABLET PO PRN (15:54)
[2017-11-29] MEDS: QUEtiapine FUMARATE 200 MG TABLET PO SCH (21:10)
[2017-11-29 21:51] VITALS: BP 121/79
[2017-11-30 08:54] VITALS: BP 110/65
[2017-11-30] MEDS: SERTRALINE HCL 100 MG TABLET PO SCH (09:19)
[2017-11-30] MEDS: OMEPRAZOLE 20 MG CAPSULE PO SCH (09:19)
[2017-11-30] MEDS: DOCUSATE SODIUM 100 MG CAPSULE PO SCH (09:19)
[2017-11-30] MEDS: NICOTINE 21 MG/24 HOUR PATCH TD SCH (09:23)
[2017-11-30] MEDS ORDERED: DSS100 PO (09:47)
[2017-11-30] MEDS ORDERED: OMEP20 PO (09:48)
[2017-11-30] MEDS: LORazepam 2 MG TABLET PO PRN (11:25)
== END 2017-11-30 15:25 | disposition home or self-care (01) | DRG 750 ==
LOC: B3A 16:45 → 3EI 20:00
PROVIDERS: ADMIT Psychiatry & Neurology Psychiatry; ATTEND Psychiatry & Neurology Psychiatry
PROC: 3E0234Z Introduction of Serum, Toxoid and Vaccine into Muscle, Percutaneous Approach (ICD-10-PCS; principal; 2017-11-28)
DX: F25.9 Schizoaffective disorder, unspecified (principal); F15.10 Other stimulant abuse, uncomplicated; F17.200 Nicotine dependence, unspecified, uncomplicated; F41.9 Anxiety disorder, unspecified; G47.00 Insomnia, unspecified; J44.9 Chronic obstructive pulmonary disease, unspecified; K21.9 Gastro-esophageal reflux disease without esophagitis; F31.9 Bipolar disorder, unspecified; Z71.6 Tobacco abuse counseling; Z72.89 Other problems related to lifestyle; Z71.41 Alcohol abuse counseling and surveillance of alcoholic; Z23 Encounter for immunization
CPT/HCPCS: 83036; 84439; 84443; 87081; 90471; J2060

== ENCOUNTER 2017-12-12 16:13 | Inpatient (IN) | payer MEDICAID, OTHER ==
[~2017-12-12] VITALS: Ht 182.9 cm; Wt 103.5 kg
[~2017-12-12 16:13] MED LIST changes: +DSS100 PO; +OMEP20 PO
[2017-12-12 17:06] LABS: BASOPHILS % (AUTO) 0.6 % (0.0-2.0); EOSINOPHILS % (AUTO) 1.7 % (1.0-6.0); HEMATOCRIT 43.3 % (41-53); HEMOGLOBIN 14.9 g/dL (13.5-17.5); LYMPHOCYTES # (AUTO) 1.9 K/uL (1.0-4.8); LYMPHOCYTES % (AUTO) 29.4 % (22.0-44.0); MEAN CORPUSCULAR HEMOGLOBIN 30.3 pg (26.0-34.0); MEAN CORPUSCULAR HGB CONC 34.4 G/dL (31.0-37.0); MEAN CORPUSCULAR VOLUME 88 fL (80-100); MONOCYTES # (AUTO) 0.4 K/uL (0.1-1.0); MONOCYTES % (AUTO) 5.8 % (2.0-9.0); NEUTROPHILS % (AUTO) 62.5 % (40.0-70.0); PLATELET COUNT (AUTO) 344 K/uL (150-450); RED BLOOD CELL COUNT(AUTO) 4.91 MIL/uL (4.50-5.90); RED CELL DISTRIBUTION WIDTH 13.4 % (11.5-14.5)
[2017-12-12 17:17] LABS: AMPHET/METH SCREEN,URINE NEGATIVE (NEGATIVE); BARBITURATE SCREEN, URINE NEGATIVE (NEGATIVE); BENZODIAZEPINES SCREEN,URINE NEGATIVE (NEGATIVE); CANNABINOID SCREEN,URINE NEGATIVE (NEGATIVE); COCAINE SCREEN,URINE NEGATIVE (NEGATIVE); METHADONE SCREEN, URINE NEGATIVE (NEGATIVE); OPIATE SCREEN,URINE NEGATIVE (NEGATIVE)
[2017-12-12 17:18] LABS: ANION GAP 10 mmol/L (8-16); CALCIUM, TOTAL 9.3 mg/dL (8.8-10.5); CARBON DIOXIDE 27 mmol/L (22-29); CHLORIDE 106 mmol/L (98-107); CREATININE 0.91 mg/dL (0.60-1.30); GLOMERULAR FILTR. RATE CALC > 60 mL/min (>60); GLUCOSE,RANDOM 101 mg/dL (70-110); SODIUM SERUM 143 mmol/L (136-145); UREA NITROGEN, BLOOD 14 mg/dL (7-18)
[2017-12-12 17:24] LABS: ALANINE AMINOTRANSFERASE 25 U/L (12-78); ALBUMIN 3.8 g/dL (3.4-5.0); ALKALINE PHOSPHATASE 76 U/L (46-116); ASPARTATE AMINOTRANSFERASE 15 U/L (15-37); BILIRUBIN,TOTAL 0.4 mg/dL (0.1-1.0); TOTAL PROTEIN, SERUM 7.6 g/dL (6.4-8.2)
[2017-12-12 17:26] LABS: PHENCYCLIDINE SCREEN,URINE NEGATIVE (NEGATIVE)
[2017-12-12 19:17] LABS: CHOL/HDL RATIO 5.8 (4.2-7.3); CHOLESTEROL 197 mg/dL (131-200); FREE T4 (FREE THYROXINE) 0.62 ng/dL (0.76-1.46); HDL CHOLESTEROL 34 mg/dL (40-60); LDL CHOL (CALC.) 136 mg/dL (0-130); THYROID STIMULATING HORMONE 0.37 uIU/mL (0.36-3.74); TRIGLYCERIDES 136 mg/dL (15-150)
[2017-12-12] MEDS: HALOPERIDOL 5 MG TABLET PO PRN (19:29)
[2017-12-12] MEDS: LORazepam 2 MG TABLET PO PRN (19:29)
[2017-12-12 20:19] VITALS: BP 125/82
[2017-12-12] MEDS: ZOLPIDEM TARTRATE 10 MG TABLET PO PRN (22:30)
[2017-12-13 09:20] VITALS: BP 118/66
[2017-12-13] MEDS: OMEPRAZOLE 20 MG CAPSULE PO SCH (09:28)
[2017-12-13] MEDS: HALOPERIDOL 5 MG TABLET PO PRN ×2 (09:29→16:12)
[2017-12-13] MEDS: DOCUSATE SODIUM 100 MG CAPSULE PO SCH (09:29)
[2017-12-13] MEDS: LORazepam 2 MG TABLET PO PRN ×2 (09:30→16:12)
[2017-12-13] MEDS ORDERED: LOPERAMIDE HCL 2 MG CAPSULE PO PRN (19:15)
[2017-12-13] MEDS ORDERED: ACETAMINOPHEN 325 MG TABLET PO PRN (19:15)
[2017-12-13] MEDS ORDERED: ALBUTEROL SULFATE HFA 90 MCG/PUFF 8 GM INHALER IH PRN (19:15)
[2017-12-13] MEDS ORDERED: MAGNESIUM HYDROXIDE SUSPENSION 30 ML UDCUP PO PRN (19:15)
[2017-12-13] MEDS ORDERED: ONDANSETRON HCL 4 MG TABLET PO PRN (19:15)
[2017-12-13] MEDS ORDERED: IBUPROFEN 600 MG TABLET PO PRN (19:15)
[2017-12-13] MEDS ORDERED: PETROLATUM,WHITE 71 GM JELLY TP PRN (19:15)
[2017-12-13] MEDS ORDERED: MAG HYDROX/AL HYDROX/SIMETH ES 30 ML SUSPENSION UDCUP PO PRN (19:15)
[2017-12-13] MEDS ORDERED: BACITRACIN 28.4 GM OINTMENT TP PRN (19:15)
[2017-12-13] MEDS ORDERED: BENZOCAINE/MENTHOL LOZENGE [8 LOZENGES/PACKET] MM PRN (19:15)
[2017-12-13] MEDS ORDERED: CloNIDine HCL 0.1 MG TABLET PO PRN (19:15)
[2017-12-13] MEDS: QUEtiapine FUMARATE 200 MG TABLET PO SCH (21:46)
[2017-12-14 09:26] VITALS: BP 116/66
[2017-12-14] MEDS: OMEPRAZOLE 20 MG CAPSULE PO SCH (09:52)
[2017-12-14] MEDS: DOCUSATE SODIUM 100 MG CAPSULE PO SCH (09:52)
[2017-12-14] MEDS: SERTRALINE HCL 100 MG TABLET PO SCH (09:53)
[2017-12-14] MEDS: HALOPERIDOL 5 MG TABLET PO PRN (16:36)
[2017-12-14 17:05] VITALS: BP 121/70
[2017-12-14] MEDS: LORazepam 2 MG TABLET PO PRN (17:30)
[2017-12-14] MEDS: QUEtiapine FUMARATE 200 MG TABLET PO SCH (20:59)
[2017-12-14] MEDS: ZOLPIDEM TARTRATE 10 MG TABLET PO PRN (21:58)
[2017-12-15] MEDS: HALOPERIDOL 5 MG TABLET PO PRN ×2 (09:17→19:42)
[2017-12-15] MEDS: OMEPRAZOLE 20 MG CAPSULE PO SCH (09:18)
[2017-12-15] MEDS: SERTRALINE HCL 100 MG TABLET PO SCH (09:18)
[2017-12-15] MEDS: LORazepam 2 MG TABLET PO PRN ×2 (09:18→19:42)
[2017-12-15] MEDS: DOCUSATE SODIUM 100 MG CAPSULE PO SCH (09:18)
[2017-12-15 10:21] VITALS: BP 103/65
[2017-12-15 19:47] VITALS: BP 121/79
[2017-12-15] MEDS: NICOTINE 21 MG/24 HOUR PATCH TD SCH (20:49)
[2017-12-15] MEDS: QUEtiapine FUMARATE 200 MG TABLET PO SCH (20:50)
[2017-12-15] MEDS: ZOLPIDEM TARTRATE 10 MG TABLET PO PRN (21:34)
[2017-12-16 08:00] VITALS: BP 104/62
[2017-12-16] MEDS: DOCUSATE SODIUM 100 MG CAPSULE PO SCH (10:49)
[2017-12-16] MEDS: LORazepam 2 MG TABLET PO PRN ×2 (10:49→17:03)
[2017-12-16] MEDS: OMEPRAZOLE 20 MG CAPSULE PO SCH (10:49)
[2017-12-16] MEDS: SERTRALINE HCL 100 MG TABLET PO SCH (10:49)
[2017-12-16] MEDS: HALOPERIDOL 5 MG TABLET PO PRN ×2 (10:49→17:03)
[2017-12-16] MEDS: NICOTINE 21 MG/24 HOUR PATCH TD SCH (10:51)
[2017-12-16 15:50] VITALS: BP 121/75
[2017-12-16 16:50] VITALS: BP 118/71
[2017-12-16] MEDS: QUEtiapine FUMARATE 200 MG TABLET PO SCH (20:33)
[2017-12-16] MEDS: ZOLPIDEM TARTRATE 10 MG TABLET PO PRN (23:25)
[2017-12-17] MEDS: DOCUSATE SODIUM 100 MG CAPSULE PO SCH (08:39)
[2017-12-17] MEDS: OMEPRAZOLE 20 MG CAPSULE PO SCH (08:39)
[2017-12-17] MEDS: SERTRALINE HCL 100 MG TABLET PO SCH (08:39)
[2017-12-17] MEDS: NICOTINE 21 MG/24 HOUR PATCH TD SCH (08:44)
== END 2017-12-17 16:15 | disposition home or self-care (01) | DRG 750 ==
LOC: EMS 16:15 → 3EI 19:30
PROVIDERS: ADMIT Psychiatry & Neurology Psychiatry; ATTEND Psychiatry & Neurology Psychiatry
DX: F25.9 Schizoaffective disorder, unspecified (principal); F32.9 Major depressive disorder, single episode, unspecified; F15.10 Other stimulant abuse, uncomplicated; F17.200 Nicotine dependence, unspecified, uncomplicated; F41.9 Anxiety disorder, unspecified; G47.00 Insomnia, unspecified; J44.9 Chronic obstructive pulmonary disease, unspecified; K21.9 Gastro-esophageal reflux disease without esophagitis; F19.10 Other psychoactive substance abuse, uncomplicated; K59.00 Constipation, unspecified; Z79.899 Other long term (current) drug therapy; Z56.0 Unemployment, unspecified
CPT/HCPCS: 84439; 84443; 87081; 99285; G0480

== ENCOUNTER 2018-06-04 13:44 | Inpatient (IN) | payer MEDICAID ==
[~2018-06-04] VITALS: Ht 182.9 cm; Wt 102.5 kg
[~2018-06-04 13:44] MED LIST changes: +BUPR300T53 PO; +DIVA250T4 PO; +DOCU250C91 PO; -DSS100 PO; +MULT-1239 PO; -OMEP20 PO; -QUET200T PO; +QUET400T PO; -SERT100T12 PO
[2018-06-04 14:36] VITALS: BP 112/52
[2018-06-04] MEDS ORDERED: ZOLPIDEM TARTRATE 10 MG TABLET PO PRN (15:15)
[2018-06-04] MEDS ORDERED: LOPERAMIDE HCL 2 MG CAPSULE PO PRN (15:15)
[2018-06-04] MEDS ORDERED: ACETAMINOPHEN 325 MG TABLET PO PRN (15:15)
[2018-06-04] MEDS ORDERED: MAGNESIUM HYDROXIDE SUSPENSION 30 ML UDCUP PO PRN (15:15)
[2018-06-04] MEDS ORDERED: MAG HYDROX/AL HYDROX/SIMETH ES 30 ML SUSPENSION UDCUP PO PRN (15:15)
[2018-06-04] MEDS: LORazepam 2 MG TABLET PO PRN (16:30)
[2018-06-04] MEDS: HALOPERIDOL 5 MG TABLET PO PRN (16:30)
[2018-06-04 16:42] VITALS: BP 116/82
[2018-06-04] MEDS ORDERED: DIVA-78 PO (18:45)
[2018-06-05 06:12] VITALS: BP 120/86
[2018-06-05] MEDS: HALOPERIDOL 5 MG TABLET PO PRN (06:47)
[2018-06-05] MEDS: LORazepam 2 MG TABLET PO PRN ×2 (06:47→13:43)
[2018-06-05 07:52] LABS: BASOPHILS % (AUTO) 0.9 % (0.0-2.0); EOSINOPHILS % (AUTO) 3.9 % (1.0-6.0); HEMATOCRIT 42.6 % (41-53); HEMOGLOBIN 14.5 g/dL (13.5-17.5); LYMPHOCYTES # (AUTO) 3.5 K/uL (1.0-4.8); LYMPHOCYTES % (AUTO) 49.3 % (22.0-44.0); MEAN CORPUSCULAR HEMOGLOBIN 30.1 pg (26.0-34.0); MEAN CORPUSCULAR VOLUME 89 fL (80-100); MONOCYTES # (AUTO) 0.6 K/uL (0.1-1.0); MONOCYTES % (AUTO) 8.3 % (2.0-9.0); NEUTROPHILS # (AUTO) 2.6 K/uL (1.8-7.7); NEUTROPHILS % (AUTO) 37.6 % (40.0-70.0); PLATELET COUNT (AUTO) 294 K/uL (150-450); RED BLOOD CELL COUNT(AUTO) 4.81 MIL/uL (4.50-5.90); RED CELL DISTRIBUTION WIDTH 12.9 % (11.5-14.5)
[2018-06-05 08:17] LABS: AMPHET/METH SCREEN,URINE NEGATIVE (NEGATIVE); BARBITURATE SCREEN, URINE NEGATIVE (NEGATIVE); BENZODIAZEPINES SCREEN,URINE NEGATIVE (NEGATIVE); CANNABINOID SCREEN,URINE POSITIVE (NEGATIVE); COCAINE SCREEN,URINE NEGATIVE (NEGATIVE); METHADONE SCREEN, URINE NEGATIVE (NEGATIVE); OPIATE SCREEN,URINE NEGATIVE (NEGATIVE)
[2018-06-05 08:28] LABS: ALANINE AMINOTRANSFERASE 23 U/L (12-78); ALBUMIN 3.5 g/dL (3.4-5.0); ALKALINE PHOSPHATASE 65 U/L (46-116); ANION GAP 6 mmol/L (8-16); ASPARTATE AMINOTRANSFERASE 13 U/L (15-37); BILIRUBIN,TOTAL 0.5 mg/dL (0.1-1.0); CALCIUM, TOTAL 8.8 mg/dL (8.8-10.5); CARBON DIOXIDE 28 mmol/L (22-29); CHLORIDE 105 mmol/L (98-107); CHOL/HDL RATIO 4.9 (4.2-7.3); CHOLESTEROL 190 mg/dL (131-200); CREATININE 0.82 mg/dL (0.60-1.30); FREE T4 (FREE THYROXINE) 0.67 ng/dL (0.76-1.46); GLOMERULAR FILTR. RATE CALC > 60 mL/min (>60); GLUCOSE,RANDOM 90 mg/dL (70-110); HDL CHOLESTEROL 39 mg/dL (40-60); LDL CHOL (CALC.) 131 mg/dL (0-130); POTASSIUM 3.8 mmol/L (3.5-5.1); SODIUM SERUM 139 mmol/L (136-145); THYROID STIMULATING HORMONE 1.87 uIU/mL (0.36-3.74); TOTAL PROTEIN, SERUM 6.9 g/dL (6.4-8.2); TRIGLYCERIDES 99 mg/dL (15-150); UREA NITROGEN, BLOOD 15 mg/dL (7-18)
[2018-06-05] MEDS: DOCUSATE SODIUM 250 MG CAPSULE PO SCH (08:36)
[2018-06-05] MEDS: MULTIVITAMINS WITH MINERALS, THERAPEUTIC TABLET PO SCH (08:36)
[2018-06-05] MEDS: NICOTINE 21 MG/24 HOUR PATCH TD SCH (08:36)
[2018-06-05 08:40] LABS: PHENCYCLIDINE SCREEN,URINE NEGATIVE (NEGATIVE)
[2018-06-05 09:21] VITALS: BP 112/71
[2018-06-05 09:26] LABS: APPEARANCE,URINE CLEAR (CLEAR); BILIRUBIN,URINE NEGATIVE (NEGATIVE); GLUCOSE, URINE (UA) NEGATIVE (NEGATIVE); KETONES,URINE NEGATIVE (NEGATIVE); LEUKOCYTE ESTERASE ,URINE NEGATIVE (NEGATIVE); NITRATE,URINE NEGATIVE (NEGATIVE); OCCULT BLOOD,URINE NEGATIVE (NEGATIVE); PH,URINE 6.5 (5.0-8.0); PROTEIN,URINE NEGATIVE (NEGATIVE); UROBILINOGEN,URINE 0.2 mg/dL (<=1.0)
[2018-06-05 16:18] VITALS: BP 110/80
[2018-06-05] MEDS ORDERED: QUEtiapine FUMARATE 200 MG TABLET PO SCH (21:00)
[2018-06-06 01:14] VITALS: BP 108/68
[2018-06-06 08:55] VITALS: BP 118/67
[2018-06-06] MEDS ORDERED: BuPROPion HCL XL 150 MG ER TABLET PO SCH (09:00)
[2018-06-06] MEDS ORDERED: SERTRALINE HCL 100 MG TABLET PO SCH (09:00)
[2018-06-06] MEDS: DOCUSATE SODIUM 250 MG CAPSULE PO SCH (10:15)
[2018-06-06] MEDS: MULTIVITAMINS WITH MINERALS, THERAPEUTIC TABLET PO SCH (10:15)
[2018-06-06] MEDS: NICOTINE 21 MG/24 HOUR PATCH TD SCH (10:15)
[2018-06-06] MEDS ORDERED: SERT100T12 PO (10:51)
== END 2018-06-06 12:05 | disposition home or self-care (01) | DRG 750 ==
LOC: B2S 15:23
PROVIDERS: ADMIT Psychiatry & Neurology Psychiatry; ATTEND Psychiatry & Neurology Psychiatry
DX: F25.9 Schizoaffective disorder, unspecified (principal); E55.9 Vitamin D deficiency, unspecified; F15.90 Other stimulant use, unspecified, uncomplicated; K21.9 Gastro-esophageal reflux disease without esophagitis; K59.00 Constipation, unspecified; Z72.0 Tobacco use; Z79.899 Other long term (current) drug therapy
CPT/HCPCS: 80307; 84439; 84443; 87081; 90471

== ENCOUNTER 2018-07-18 08:28 | Inpatient (IN) | payer MEDICAID ==
[~2018-07-18] VITALS: Ht 182.9 cm; Wt 98.4 kg
[~2018-07-18 08:28] MED LIST changes: -DIVA250T4 PO; -DOCU250C91 PO; -MULT-1239 PO; +SERT100T12 PO
[2018-07-18 11:12] VITALS: BP 135/73
[2018-07-18] MEDS: HALOPERIDOL 5 MG TABLET PO PRN (13:46)
[2018-07-18] MEDS: LORazepam 2 MG TABLET PO PRN (13:46)
[2018-07-18 15:45] VITALS: BP 133/90
[2018-07-18 18:05] VITALS: BP 106/65
[2018-07-18] MEDS: QUEtiapine FUMARATE 200 MG TABLET PO SCH (20:18)
[2018-07-19 05:51] VITALS: BP 119/77
[2018-07-19] MEDS: LORazepam 2 MG TABLET PO PRN ×2 (06:38→21:23)
[2018-07-19] MEDS: HALOPERIDOL 5 MG TABLET PO PRN ×2 (06:38→21:23)
[2018-07-19 08:17] VITALS: BP 105/62
[2018-07-19 08:20] LABS: BASOPHILS % (AUTO) 0.7 % (0.0-2.0); EOSINOPHILS % (AUTO) 3.6 % (1.0-6.0); HEMATOCRIT 41.6 % (41-53); HEMOGLOBIN 14.5 g/dL (13.5-17.5); LYMPHOCYTES # (AUTO) 2.5 K/uL (1.0-4.8); LYMPHOCYTES % (AUTO) 43.1 % (22.0-44.0); MEAN CORPUSCULAR HEMOGLOBIN 30.7 pg (26.0-34.0); MEAN CORPUSCULAR HGB CONC 34.9 G/dL (31.0-37.0); MEAN CORPUSCULAR VOLUME 88 fL (80-100); MONOCYTES # (AUTO) 0.4 K/uL (0.1-1.0); MONOCYTES % (AUTO) 7.4 % (2.0-9.0); NEUTROPHILS # (AUTO) 2.6 K/uL (1.8-7.7); NEUTROPHILS % (AUTO) 45.2 % (40.0-70.0); PLATELET COUNT (AUTO) 340 K/uL (150-450); RED BLOOD CELL COUNT(AUTO) 4.74 MIL/uL (4.50-5.90); RED CELL DISTRIBUTION WIDTH 12.8 % (11.5-14.5)
[2018-07-19] MEDS: BuPROPion HCL XL 150 MG ER TABLET PO SCH (08:42)
[2018-07-19] MEDS: SERTRALINE HCL 100 MG TABLET PO SCH (08:42)
[2018-07-19 08:47] LABS: AMPHET/METH SCREEN,URINE POSITIVE (NEGATIVE); BARBITURATE SCREEN, URINE NEGATIVE (NEGATIVE); BENZODIAZEPINES SCREEN,URINE NEGATIVE (NEGATIVE); CANNABINOID SCREEN,URINE POSITIVE (NEGATIVE); COCAINE SCREEN,URINE NEGATIVE (NEGATIVE); METHADONE SCREEN, URINE NEGATIVE (NEGATIVE); OPIATE SCREEN,URINE NEGATIVE (NEGATIVE)
[2018-07-19 08:48] LABS: HEMOGLOBIN A1C 5.3 % (4.5-6.2)
[2018-07-19 08:49] LABS: PHENCYCLIDINE SCREEN,URINE NEGATIVE (NEGATIVE)
[2018-07-19 09:00] LABS: APPEARANCE,URINE CLEAR (CLEAR); BILIRUBIN,URINE NEGATIVE (NEGATIVE); GLUCOSE, URINE (UA) NEGATIVE (NEGATIVE); KETONES,URINE NEGATIVE (NEGATIVE); LEUKOCYTE ESTERASE ,URINE NEGATIVE (NEGATIVE); NITRATE,URINE NEGATIVE (NEGATIVE); OCCULT BLOOD,URINE NEGATIVE (NEGATIVE); PH,URINE 6.5 (5.0-8.0); PROTEIN,URINE NEGATIVE (NEGATIVE); UROBILINOGEN,URINE 0.2 mg/dL (<=1.0)
[2018-07-19 09:09] LABS: ALANINE AMINOTRANSFERASE 26 U/L (12-78); ALBUMIN 3.5 g/dL (3.4-5.0); ALKALINE PHOSPHATASE 81 U/L (46-116); ANION GAP 7 mmol/L (8-16); ASPARTATE AMINOTRANSFERASE 6 U/L (15-37); BILIRUBIN,TOTAL 0.4 mg/dL (0.1-1.0); CALCIUM, TOTAL 8.8 mg/dL (8.8-10.5); CARBON DIOXIDE 29 mmol/L (22-29); CHLORIDE 102 mmol/L (98-107); CHOL/HDL RATIO 4.1 (4.2-7.3); CHOLESTEROL 151 mg/dL (131-200); CREATININE 0.95 mg/dL (0.60-1.30); GLOMERULAR FILTR. RATE CALC > 60 mL/min (>60); GLUCOSE,RANDOM 99 mg/dL (70-110); HDL CHOLESTEROL 37 mg/dL (40-60); LDL CHOL (CALC.) 94 mg/dL (0-130); SODIUM SERUM 138 mmol/L (136-145); THYROID STIMULATING HORMONE 0.95 uIU/mL (0.36-3.74); TRIGLYCERIDES 99 mg/dL (15-150); UREA NITROGEN, BLOOD 14 mg/dL (7-18)
[2018-07-19 11:00] LABS: FREE T4 (FREE THYROXINE) 0.74 ng/dL (0.76-1.46)
[2018-07-19 16:44] VITALS: BP 99/60
[2018-07-19] MEDS: QUEtiapine FUMARATE 200 MG TABLET PO SCH (21:23)
[2018-07-20 01:08] VITALS: BP 76/117
[2018-07-20 09:18] VITALS: BP 68/110
[2018-07-20] MEDS ORDERED: MUPIROCIN CALCIUM 2% 22 GM OINTMENT NASAL SCH (09:45)
[2018-07-20] MEDS: BuPROPion HCL XL 150 MG ER TABLET PO SCH (10:31)
[2018-07-20] MEDS: SERTRALINE HCL 100 MG TABLET PO SCH (10:31)
[2018-07-20] MEDS: MUPIROCIN CALCIUM 2% 22 GM OINTMENT NASAL SCH ×2 (13:39→18:10)
[2018-07-20 17:04] VITALS: BP 108/61
[2018-07-20 17:07] VITALS: BP 120/78
[2018-07-20] MEDS: QUEtiapine FUMARATE 200 MG TABLET PO SCH (21:23)
[2018-07-21 00:51] VITALS: BP 104/62
[2018-07-21] MEDS: LORazepam 2 MG TABLET PO PRN (04:59)
[2018-07-21] MEDS: HALOPERIDOL 5 MG TABLET PO PRN (04:59)
[2018-07-21 05:00] VITALS: BP 112/76
[2018-07-21 08:24] VITALS: BP 133/70
[2018-07-21] MEDS: BuPROPion HCL XL 150 MG ER TABLET PO SCH (09:28)
[2018-07-21] MEDS: MUPIROCIN CALCIUM 2% 22 GM OINTMENT NASAL SCH ×2 (09:29→16:48)
[2018-07-21] MEDS: SERTRALINE HCL 100 MG TABLET PO SCH (09:29)
[2018-07-21 16:28] VITALS: BP 110/66
[2018-07-21] MEDS: QUEtiapine FUMARATE 200 MG TABLET PO SCH (20:25)
[2018-07-22 01:10] VITALS: BP 100/70
[2018-07-22] MEDS: HALOPERIDOL 5 MG TABLET PO PRN ×2 (01:18→11:56)
[2018-07-22] MEDS: ZOLPIDEM TARTRATE 10 MG TABLET PO PRN ×2 (01:18→23:04)
[2018-07-22 08:25] VITALS: BP 136/74
[2018-07-22] MEDS: MUPIROCIN CALCIUM 2% 22 GM OINTMENT NASAL SCH ×2 (08:56→16:32)
[2018-07-22] MEDS: BuPROPion HCL XL 150 MG ER TABLET PO SCH (08:57)
[2018-07-22] MEDS: SERTRALINE HCL 100 MG TABLET PO SCH (08:58)
[2018-07-22] MEDS: LORazepam 2 MG TABLET PO PRN (11:56)
[2018-07-22 16:19] VITALS: BP 109/65
[2018-07-22] MEDS: QUEtiapine FUMARATE 200 MG TABLET PO SCH (20:29)
[2018-07-23 06:11] VITALS: BP 108/65
[2018-07-23 06:50] VITALS: BP 112/72
[2018-07-23] MEDS: LORazepam 2 MG TABLET PO PRN (06:56)
[2018-07-23] MEDS: HALOPERIDOL 5 MG TABLET PO PRN (06:56)
[2018-07-23 08:22] VITALS: BP 102/65
[2018-07-23] MEDS: SERTRALINE HCL 100 MG TABLET PO SCH (08:22)
[2018-07-23] MEDS: BuPROPion HCL XL 150 MG ER TABLET PO SCH (08:23)
[2018-07-23] MEDS: MUPIROCIN CALCIUM 2% 22 GM OINTMENT NASAL SCH ×3 (08:23→16:28)
[2018-07-23 16:07] VITALS: BP 113/65
[2018-07-23] MEDS: QUEtiapine FUMARATE 200 MG TABLET PO SCH (20:38)
[2018-07-23] MEDS: ZOLPIDEM TARTRATE 10 MG TABLET PO PRN (21:44)
[2018-07-24 02:17] VITALS: BP 113/68
[2018-07-24 06:35] VITALS: BP 114/75
[2018-07-24] MEDS: LORazepam 2 MG TABLET PO PRN ×2 (06:46→11:04)
[2018-07-24] MEDS: HALOPERIDOL 5 MG TABLET PO PRN ×2 (06:46→11:04)
[2018-07-24 08:22] VITALS: BP 139/76
[2018-07-24] MEDS: MUPIROCIN CALCIUM 2% 22 GM OINTMENT NASAL SCH (08:56)
[2018-07-24] MEDS: SERTRALINE HCL 100 MG TABLET PO SCH (08:56)
[2018-07-24] MEDS: BuPROPion HCL XL 150 MG ER TABLET PO SCH (08:56)
[2018-07-24] MEDS ORDERED: MUPI1OIN4 NS (11:50)
== END 2018-07-24 13:25 | disposition home or self-care (01) | DRG 750 ==
LOC: B2S 11:16
PROVIDERS: ADMIT Psychiatry & Neurology Psychiatry; ATTEND Psychiatry & Neurology Psychiatry
DX: F25.9 Schizoaffective disorder, unspecified (principal); R45.851 Suicidal ideations; Z28.21 Immunization not carried out because of patient refusal; E55.9 Vitamin D deficiency, unspecified; F15.90 Other stimulant use, unspecified, uncomplicated; F17.200 Nicotine dependence, unspecified, uncomplicated; K21.9 Gastro-esophageal reflux disease without esophagitis; K59.00 Constipation, unspecified; F12.90 Cannabis use, unspecified, uncomplicated
CPT/HCPCS: 83036; 84439; 84443; 87081; 90686

== ENCOUNTER 2018-08-08 16:04 | Inpatient (IN) | payer MEDICAID, OTHER ==
[~2018-08-08] VITALS: Ht 188 cm; Wt 98.2 kg
[~2018-08-08 16:04] MED LIST changes: +MUPI1OIN4 NS
[2018-08-08 16:36] LABS: BASOPHILS % (AUTO) 0.7 % (0.0-2.0); EOSINOPHILS % (AUTO) 3.8 % (1.0-6.0); HEMATOCRIT 40.2 % (41-53); HEMOGLOBIN 13.8 g/dL (13.5-17.5); LYMPHOCYTES # (AUTO) 1.6 K/uL (1.0-4.8); LYMPHOCYTES % (AUTO) 29.3 % (22.0-44.0); MEAN CORPUSCULAR HEMOGLOBIN 30.5 pg (26.0-34.0); MEAN CORPUSCULAR HGB CONC 34.4 G/dL (31.0-37.0); MEAN CORPUSCULAR VOLUME 89 fL (80-100); MONOCYTES # (AUTO) 0.5 K/uL (0.1-1.0); MONOCYTES % (AUTO) 9.6 % (2.0-9.0); NEUTROPHILS # (AUTO) 3.2 K/uL (1.8-7.7); NEUTROPHILS % (AUTO) 56.6 % (40.0-70.0); PLATELET COUNT (AUTO) 325 K/uL (150-450); RED BLOOD CELL COUNT(AUTO) 4.54 MIL/uL (4.50-5.90); RED CELL DISTRIBUTION WIDTH 12.9 % (11.5-14.5)
[2018-08-08 16:43] LABS: ANION GAP 4 mmol/L (8-16); CARBON DIOXIDE 30 mmol/L (22-29); CHLORIDE 106 mmol/L (98-107); CREATININE 0.89 mg/dL (0.60-1.30); GLOMERULAR FILTR. RATE CALC > 60 mL/min (>60); GLUCOSE,RANDOM 83 mg/dL (70-110); POTASSIUM 3.9 mmol/L (3.5-5.1); SODIUM SERUM 140 mmol/L (136-145); UREA NITROGEN, BLOOD 14 mg/dL (7-18)
[2018-08-08 16:49] LABS: ALANINE AMINOTRANSFERASE 23 U/L (12-78); ALBUMIN 3.6 g/dL (3.4-5.0); ALKALINE PHOSPHATASE 83 U/L (46-116); ASPARTATE AMINOTRANSFERASE 19 U/L (15-37); BILIRUBIN,TOTAL 0.3 mg/dL (0.1-1.0)
[2018-08-08 17:17] LABS: AMPHET/METH SCREEN,URINE POSITIVE (NEGATIVE); BARBITURATE SCREEN, URINE NEGATIVE (NEGATIVE); BENZODIAZEPINES SCREEN,URINE NEGATIVE (NEGATIVE); CANNABINOID SCREEN,URINE POSITIVE (NEGATIVE); COCAINE SCREEN,URINE NEGATIVE (NEGATIVE); METHADONE SCREEN, URINE NEGATIVE (NEGATIVE); OPIATE SCREEN,URINE NEGATIVE (NEGATIVE)
[2018-08-08 17:18] LABS: PHENCYCLIDINE SCREEN,URINE NEGATIVE (NEGATIVE)
[2018-08-08] MEDS ORDERED: LORazepam 2 MG TABLET PO ONE (17:30)
[2018-08-08] MEDS ORDERED: HALOPERIDOL 5 MG TABLET PO ONE (17:30)
[2018-08-08] MEDS ORDERED: ACETAMINOPHEN 325 MG TABLET PO ONE (20:30)
[2018-08-08 21:45] LABS: APPEARANCE,URINE CLEAR (CLEAR); BILIRUBIN,URINE NEGATIVE (NEGATIVE); GLUCOSE, URINE (UA) NEGATIVE (NEGATIVE); KETONES,URINE NEGATIVE (NEGATIVE); LEUKOCYTE ESTERASE ,URINE NEGATIVE (NEGATIVE); NITRATE,URINE NEGATIVE (NEGATIVE); OCCULT BLOOD,URINE NEGATIVE (NEGATIVE); PH,URINE 6.5 (5.0-8.0); PROTEIN,URINE NEGATIVE (NEGATIVE)
[2018-08-08] MEDS ORDERED: IBUPROFEN 600 MG TABLET PO PRN (21:45)
[2018-08-08] MEDS ORDERED: ACETAMINOPHEN 325 MG TABLET PO PRN (21:45)
[2018-08-08] MEDS ORDERED: MAG HYDROX/AL HYDROX/SIMETH 30 ML SUSP UDCUP PO PRN (21:45)
[2018-08-08] MEDS ORDERED: LOPERAMIDE HCL 2 MG CAPSULE PO PRN (21:45)
[2018-08-08] MEDS ORDERED: MAGNESIUM HYDROXIDE SUSPENSION 30 ML UDCUP PO PRN (21:45)
[2018-08-08 22:19] VITALS: BP 129/83
[2018-08-09 07:20] LABS: CHOL/HDL RATIO 3.5 (4.2-7.3)
[2018-08-09] MEDS: HALOPERIDOL 5 MG TABLET PO PRN (07:43)
[2018-08-09] MEDS: LORazepam 2 MG TABLET PO PRN (07:43)
[2018-08-09] MEDS: QUEtiapine FUMARATE 200 MG TABLET PO SCH (20:31)
[2018-08-10 08:00] VITALS: BP 92/60
[2018-08-10] MEDS: BuPROPion HCL XL 150 MG ER TABLET PO SCH (08:04)
[2018-08-10] MEDS: SERTRALINE HCL 100 MG TABLET PO SCH (08:04)
[2018-08-10] MEDS: MUPIROCIN CALCIUM 2% 22 GM OINTMENT NASAL SCH ×2 (08:30→16:18)
[2018-08-10] MEDS: LORazepam 2 MG TABLET PO PRN (16:45)
[2018-08-10] MEDS: HALOPERIDOL 5 MG TABLET PO PRN (16:49)
[2018-08-10] MEDS: QUEtiapine FUMARATE 200 MG TABLET PO SCH (20:39)
[2018-08-11] MEDS: ZOLPIDEM TARTRATE 10 MG TABLET PO PRN ×2 (00:32→23:47)
[2018-08-11] MEDS: HALOPERIDOL 5 MG TABLET PO PRN ×2 (00:32→23:47)
[2018-08-11 08:30] VITALS: BP 92/61
[2018-08-11] MEDS: SERTRALINE HCL 100 MG TABLET PO SCH (08:38)
[2018-08-11] MEDS: BuPROPion HCL XL 150 MG ER TABLET PO SCH (08:39)
[2018-08-11] MEDS: MUPIROCIN CALCIUM 2% 22 GM OINTMENT NASAL SCH ×2 (08:47→17:09)
[2018-08-11] MEDS: QUEtiapine FUMARATE 200 MG TABLET PO SCH (20:04)
[2018-08-11] MEDS: LORazepam 2 MG TABLET PO PRN (20:04)
[2018-08-12] MEDS: BuPROPion HCL XL 150 MG ER TABLET PO SCH (08:27)
[2018-08-12] MEDS: MUPIROCIN CALCIUM 2% 22 GM OINTMENT NASAL SCH ×2 (08:27→16:21)
[2018-08-12] MEDS: SERTRALINE HCL 100 MG TABLET PO SCH (08:28)
[2018-08-12 08:51] VITALS: BP 114/65
[2018-08-12] MEDS: HALOPERIDOL 5 MG TABLET PO PRN ×2 (15:57→23:45)
[2018-08-12] MEDS: LORazepam 2 MG TABLET PO PRN (15:57)
[2018-08-12 16:12] VITALS: BP 114/75
[2018-08-12] MEDS: QUEtiapine FUMARATE 200 MG TABLET PO SCH (21:39)
[2018-08-12] MEDS: ZOLPIDEM TARTRATE 10 MG TABLET PO PRN (23:45)
[2018-08-13] MEDS: MUPIROCIN CALCIUM 2% 22 GM OINTMENT NASAL SCH ×2 (08:10→16:20)
[2018-08-13] MEDS: SERTRALINE HCL 100 MG TABLET PO SCH (08:11)
[2018-08-13] MEDS: BuPROPion HCL XL 150 MG ER TABLET PO SCH (08:11)
[2018-08-13 08:34] VITALS: BP 101/65
[2018-08-13 16:02] VITALS: BP 104/61
[2018-08-13] MEDS: LORazepam 2 MG TABLET PO PRN (17:31)
[2018-08-13] MEDS: QUEtiapine FUMARATE 200 MG TABLET PO SCH (20:07)
[2018-08-13] MEDS: ZOLPIDEM TARTRATE 10 MG TABLET PO PRN (21:12)
[2018-08-14] MEDS: BuPROPion HCL XL 150 MG ER TABLET PO SCH (08:55)
[2018-08-14] MEDS: SERTRALINE HCL 100 MG TABLET PO SCH (08:56)
[2018-08-14] MEDS: MUPIROCIN CALCIUM 2% 22 GM OINTMENT NASAL SCH ×2 (09:00→16:10)
[2018-08-14 10:17] VITALS: BP 99/69
[2018-08-14 14:24] VITALS: BP 112/77
[2018-08-14] MEDS: LORazepam 2 MG TABLET PO PRN (14:25)
[2018-08-14] MEDS: HALOPERIDOL 5 MG TABLET PO PRN (16:10)
== END 2018-08-14 17:40 | disposition home or self-care (01) | DRG 750 ==
LOC: EMS 16:05 → 3EC 19:30 → UNDOADMIN 19:30
PROVIDERS: ADMIT Psychiatry & Neurology Psychiatry; ATTEND Psychiatry & Neurology Psychiatry
DX: F25.9 Schizoaffective disorder, unspecified (principal); R45.851 Suicidal ideations; Z91.14 Patient's other noncompliance with medication regimen; K21.9 Gastro-esophageal reflux disease without esophagitis; K59.00 Constipation, unspecified; F32.9 Major depressive disorder, single episode, unspecified; F15.90 Other stimulant use, unspecified, uncomplicated; F12.90 Cannabis use, unspecified, uncomplicated
CPT/HCPCS: 87081; 90686; G0480

== ENCOUNTER 2018-10-14 21:09 | Emergency (ER) | payer MEDICAID, OTHER ==
[~2018-10-14] VITALS: Ht 182.9 cm; Wt 95.5 kg
[2018-10-14 22:20] LABS: BASOPHILS % (AUTO) 0.7 % (0.0-2.0); EOSINOPHILS % (AUTO) 3.2 % (1.0-6.0); HEMOGLOBIN 14.6 g/dL (13.5-17.5); LYMPHOCYTES # (AUTO) 3.2 K/uL (1.0-4.8); LYMPHOCYTES % (AUTO) 43.7 % (22.0-44.0); MEAN CORPUSCULAR HEMOGLOBIN 30.5 pg (26.0-34.0); MEAN CORPUSCULAR HGB CONC 34.1 G/dL (31.0-37.0); MEAN CORPUSCULAR VOLUME 90 fL (80-100); MONOCYTES # (AUTO) 0.7 K/uL (0.1-1.0); MONOCYTES % (AUTO) 9.3 % (2.0-9.0); NEUTROPHILS # (AUTO) 3.2 K/uL (1.8-7.7); NEUTROPHILS % (AUTO) 43.1 % (40.0-70.0); PLATELET COUNT (AUTO) 321 K/uL (150-450); RED BLOOD CELL COUNT(AUTO) 4.79 MIL/uL (4.50-5.90); RED CELL DISTRIBUTION WIDTH 13.5 % (11.5-14.5)
[2018-10-14 22:34] LABS: ANION GAP 7 mmol/L (8-16); CALCIUM, TOTAL 9.3 mg/dL (8.8-10.5); CARBON DIOXIDE 29 mmol/L (22-29); CHLORIDE 104 mmol/L (98-107); CREATININE 0.87 mg/dL (0.60-1.30); GLOMERULAR FILTR. RATE CALC > 60 mL/min (>60); GLUCOSE,RANDOM 119 mg/dL (70-110); POTASSIUM 3.7 mmol/L (3.5-5.1); SODIUM SERUM 140 mmol/L (136-145); UREA NITROGEN, BLOOD 18 mg/dL (7-18)
[2018-10-14 22:46] LABS: ALANINE AMINOTRANSFERASE 20 U/L (12-78); ALBUMIN 4.2 g/dL (3.4-5.0); ALKALINE PHOSPHATASE 77 U/L (46-116); ASPARTATE AMINOTRANSFERASE 18 U/L (15-37); BILIRUBIN,TOTAL 0.3 mg/dL (0.1-1.0); TOTAL PROTEIN, SERUM 7.6 g/dL (6.4-8.2)
[2018-10-15] MEDS ORDERED: LORazepam 2 MG/ML VIAL IM ONE (01:00)
[2018-10-15] MEDS ORDERED: HALOPERIDOL LACTATE 5 MG/ML VIAL IM ONE (01:00)
[2018-10-15 01:53] LABS: AMPHET/METH SCREEN,URINE POSITIVE (NEGATIVE); BARBITURATE SCREEN, URINE NEGATIVE (NEGATIVE); BENZODIAZEPINES SCREEN,URINE NEGATIVE (NEGATIVE); CANNABINOID SCREEN,URINE POSITIVE (NEGATIVE); COCAINE SCREEN,URINE NEGATIVE (NEGATIVE); METHADONE SCREEN, URINE NEGATIVE (NEGATIVE); OPIATE SCREEN,URINE NEGATIVE (NEGATIVE)
[2018-10-15 02:00] LABS: PHENCYCLIDINE SCREEN,URINE NEGATIVE (NEGATIVE)
[2018-10-15] MEDS ORDERED: BACITRACIN 0.9 GM PACKET OINTMENT TP ONE (02:30)
[2018-10-15 05:30] VITALS: BP 135/71
== END 2018-10-15 05:30 | disposition home or self-care (01) ==
LOC: EMS 21:10
DX: F25.9 Schizoaffective disorder, unspecified (principal); F41.9 Anxiety disorder, unspecified; F15.10 Other stimulant abuse, uncomplicated; L30.9 Dermatitis, unspecified; F17.210 Nicotine dependence, cigarettes, uncomplicated; Z79.899 Other long term (current) drug therapy
CPT/HCPCS: 36415; 80053; 80307; 85025; 96372; 99284; 99406; G0480; J1630; J2060

== ENCOUNTER 2018-10-18 14:43 | Inpatient (IN) | payer MEDICAID ==
[~2018-10-18] VITALS: Ht 182.9 cm; Wt 100.7 kg
[2018-10-18 16:29] VITALS: BP 128/87
[2018-10-18] MEDS ORDERED: NICOTINE 14 MG/24 HOUR PATCH TD PRN (16:30)
[2018-10-18] MEDS ORDERED: MAG HYDROX/AL HYDROX/SIMETH ES 30 ML SUSPENSION UDCUP PO PRN (16:30)
[2018-10-18] MEDS ORDERED: PETROLATUM,WHITE 71 GM JELLY TP PRN (16:30)
[2018-10-18] MEDS ORDERED: LOPERAMIDE HCL 2 MG CAPSULE PO PRN (16:30)
[2018-10-18] MEDS ORDERED: GuaiFENesin/D-METHORPHAN [SUGAR-FREE] 200-20MG/10 ML SYRUP UDCUP PO PRN (16:30)
[2018-10-18] MEDS ORDERED: ALBUTEROL SULFATE HFA 90 MCG/PUFF 8 GM INHALER IH PRN (16:30)
[2018-10-18] MEDS ORDERED: IBUPROFEN 400 MG TABLET PO PRN (16:30)
[2018-10-18] MEDS ORDERED: ACETAMINOPHEN 325 MG TABLET PO PRN (16:30)
[2018-10-18] MEDS ORDERED: ONDANSETRON HCL 4 MG TABLET PO PRN (16:30)
[2018-10-18] MEDS ORDERED: CloNIDine HCL 0.1 MG TABLET PO PRN (16:30)
[2018-10-19 00:25] VITALS: BP 118/70
[2018-10-19] MEDS ORDERED: -PHARMACY VACCINE NOTE- MISC ONE (01:15)
[2018-10-19] MEDS: HALOPERIDOL 5 MG TABLET PO PRN (02:09)
[2018-10-19] MEDS: ZOLPIDEM TARTRATE 10 MG TABLET PO PRN (02:10)
[2018-10-19 08:28] VITALS: BP 123/69
[2018-10-19 09:11] LABS: BASOPHILS % (AUTO) 0.5 % (0.0-2.0); EOSINOPHILS % (AUTO) 2.7 % (1.0-6.0); HEMATOCRIT 43.5 % (41-53); HEMOGLOBIN 14.5 g/dL (13.5-17.5); LYMPHOCYTES # (AUTO) 1.8 K/uL (1.0-4.8); LYMPHOCYTES % (AUTO) 18.2 % (22.0-44.0); MEAN CORPUSCULAR HGB CONC 33.4 G/dL (31.0-37.0); MEAN CORPUSCULAR VOLUME 90 fL (80-100); MONOCYTES # (AUTO) 0.8 K/uL (0.1-1.0); MONOCYTES % (AUTO) 8.2 % (2.0-9.0); NEUTROPHILS % (AUTO) 70.4 % (40.0-70.0); PLATELET COUNT (AUTO) 256 K/uL (150-450); RED BLOOD CELL COUNT(AUTO) 4.83 MIL/uL (4.50-5.90); RED CELL DISTRIBUTION WIDTH 13.7 % (11.5-14.5)
[2018-10-19 09:18] LABS: ALANINE AMINOTRANSFERASE 23 U/L (12-78); ALBUMIN 3.2 g/dL (3.4-5.0); ALKALINE PHOSPHATASE 60 U/L (46-116); ANION GAP 11 mmol/L (8-16); ASPARTATE AMINOTRANSFERASE 15 U/L (15-37); BILIRUBIN,TOTAL 0.3 mg/dL (0.1-1.0); CALCIUM, TOTAL 8.9 mg/dL (8.8-10.5); CARBON DIOXIDE 25 mmol/L (22-29); CHLORIDE 104 mmol/L (98-107); CHOL/HDL RATIO 3.6 (4.2-7.3); CHOLESTEROL 146 mg/dL (131-200); CREATININE 0.96 mg/dL (0.60-1.30); FREE T4 (FREE THYROXINE) 0.77 ng/dL (0.76-1.46); GLOMERULAR FILTR. RATE CALC > 60 mL/min (>60); GLUCOSE,RANDOM 91 mg/dL (70-110); HDL CHOLESTEROL 41 mg/dL (40-60); LDL CHOL (CALC.) 76 mg/dL (0-130); POTASSIUM 3.9 mmol/L (3.5-5.1); SODIUM SERUM 140 mmol/L (136-145); THYROID STIMULATING HORMONE 2.98 uIU/mL (0.36-3.74); TRIGLYCERIDES 144 mg/dL (15-150); UREA NITROGEN, BLOOD 19 mg/dL (7-18)
[2018-10-19] MEDS: SERTRALINE HCL 100 MG TABLET PO SCH ×2 (09:21→09:58)
[2018-10-19] MEDS: BuPROPion HCL XL 150 MG ER TABLET PO SCH ×2 (09:22→09:58)
[2018-10-19 09:43] LABS: HEMOGLOBIN A1C 5.1 % (4.5-6.2)
[2018-10-19 16:11] VITALS: BP 125/72
[2018-10-19] MEDS: DIVALPROEX SODIUM 500 MG ER TABLET PO SCH (17:34)
[2018-10-19] MEDS: QUEtiapine FUMARATE 200 MG TABLET PO SCH ×2 (20:42→21:00)
[2018-10-20 07:14] VITALS: BP 120/81
[2018-10-20 08:49] VITALS: BP 103/61
[2018-10-20] MEDS: BuPROPion HCL XL 150 MG ER TABLET PO SCH (09:36)
[2018-10-20] MEDS: DIVALPROEX SODIUM 500 MG ER TABLET PO SCH ×2 (09:36→16:28)
[2018-10-20] MEDS: SERTRALINE HCL 100 MG TABLET PO SCH (09:43)
[2018-10-20 16:16] VITALS: BP 104/68
[2018-10-20] MEDS: DOCUSATE SODIUM 100 MG CAPSULE PO PRN (16:27)
[2018-10-20] MEDS: LORazepam 2 MG TABLET PO PRN (16:27)
[2018-10-20] MEDS: QUEtiapine FUMARATE 200 MG TABLET PO SCH (20:45)
[2018-10-20] MEDS: HALOPERIDOL 5 MG TABLET PO PRN (22:14)
[2018-10-20] MEDS: ZOLPIDEM TARTRATE 10 MG TABLET PO PRN (22:14)
[2018-10-21 06:22] VITALS: BP 109/69
[2018-10-21] MEDS: DIVALPROEX SODIUM 500 MG ER TABLET PO SCH ×2 (08:53→16:46)
[2018-10-21] MEDS: BuPROPion HCL XL 150 MG ER TABLET PO SCH (08:54)
[2018-10-21] MEDS: SERTRALINE HCL 100 MG TABLET PO SCH (08:54)
[2018-10-21] MEDS: LORazepam 2 MG TABLET PO PRN (14:16)
[2018-10-21] MEDS: HALOPERIDOL 5 MG TABLET PO PRN ×2 (14:16→22:35)
[2018-10-21 16:40] VITALS: BP 110/65
[2018-10-21] MEDS: QUEtiapine FUMARATE 200 MG TABLET PO SCH (20:24)
[2018-10-22 02:43] VITALS: BP 110/60
[2018-10-22 08:48] VITALS: BP 110/67
[2018-10-22] MEDS: BuPROPion HCL XL 150 MG ER TABLET PO SCH (09:11)
[2018-10-22] MEDS: SERTRALINE HCL 100 MG TABLET PO SCH (09:11)
[2018-10-22] MEDS: DIVALPROEX SODIUM 500 MG ER TABLET PO SCH ×2 (09:11→16:03)
[2018-10-22] MEDS: MAGNESIUM HYDROXIDE SUSPENSION 30 ML UDCUP PO PRN (10:21)
[2018-10-22] MEDS: DOCUSATE SODIUM 100 MG CAPSULE PO PRN (15:57)
[2018-10-22] MEDS: HALOPERIDOL 5 MG TABLET PO PRN (15:57)
[2018-10-22] MEDS: LORazepam 2 MG TABLET PO PRN (15:57)
[2018-10-22 16:29] VITALS: BP 115/80
[2018-10-22] MEDS: QUEtiapine FUMARATE 200 MG TABLET PO SCH (20:07)
[2018-10-22] MEDS: ZOLPIDEM TARTRATE 10 MG TABLET PO PRN (20:27)
[2018-10-23 01:03] VITALS: BP 100/68
[2018-10-23 08:19] VITALS: BP 105/52
[2018-10-23] MEDS: DIVALPROEX SODIUM 500 MG ER TABLET PO SCH ×2 (09:27→16:32)
[2018-10-23] MEDS: BuPROPion HCL XL 150 MG ER TABLET PO SCH (09:27)
[2018-10-23] MEDS: SERTRALINE HCL 100 MG TABLET PO SCH (09:27)
[2018-10-23] MEDS: NICOTINE 21 MG/24 HOUR PATCH TD SCH (09:28)
[2018-10-23 16:13] VITALS: BP 121/63
[2018-10-23] MEDS: LORazepam 2 MG TABLET PO PRN (16:32)
[2018-10-23] MEDS: HALOPERIDOL 5 MG TABLET PO PRN (16:32)
[2018-10-23] MEDS: DOCUSATE SODIUM 100 MG CAPSULE PO PRN (16:33)
[2018-10-23] MEDS: MAGNESIUM HYDROXIDE SUSPENSION 30 ML UDCUP PO PRN (17:22)
[2018-10-23] MEDS: QUEtiapine FUMARATE 200 MG TABLET PO SCH (20:49)
[2018-10-24 00:31] VITALS: BP 118/62
[2018-10-24] MEDS: LORazepam 2 MG TABLET PO PRN ×2 (00:38→16:02)
[2018-10-24] MEDS: HALOPERIDOL 5 MG TABLET PO PRN ×2 (00:38→16:02)
[2018-10-24 08:00] VITALS: BP 105/57
[2018-10-24] MEDS: DIVALPROEX SODIUM 500 MG ER TABLET PO SCH ×2 (09:35→16:02)
[2018-10-24] MEDS: SERTRALINE HCL 100 MG TABLET PO SCH (09:35)
[2018-10-24] MEDS: BuPROPion HCL XL 150 MG ER TABLET PO SCH (09:36)
[2018-10-24] MEDS: NICOTINE 21 MG/24 HOUR PATCH TD SCH (10:09)
[2018-10-24 11:48] VITALS: BP 110/75
[2018-10-24 16:28] VITALS: BP 108/66
[2018-10-24] MEDS: QUEtiapine FUMARATE 200 MG TABLET PO SCH (20:43)
[2018-10-25] MEDS: ZOLPIDEM TARTRATE 10 MG TABLET PO PRN ×4 (00:14→20:36)
[2018-10-25 00:26] VITALS: BP 110/68
[2018-10-25 08:16] VITALS: BP 105/62
[2018-10-25 08:19] VITALS: BP 105/62
[2018-10-25] MEDS: NICOTINE 21 MG/24 HOUR PATCH TD SCH (08:23)
[2018-10-25] MEDS: DIVALPROEX SODIUM 500 MG ER TABLET PO SCH ×2 (08:23→16:12)
[2018-10-25] MEDS: BuPROPion HCL XL 150 MG ER TABLET PO SCH (08:23)
[2018-10-25] MEDS: SERTRALINE HCL 100 MG TABLET PO SCH (08:23)
[2018-10-25] MEDS: MAGNESIUM HYDROXIDE SUSPENSION 30 ML UDCUP PO PRN (13:00)
[2018-10-25] MEDS: LORazepam 2 MG TABLET PO PRN (15:28)
[2018-10-25] MEDS: HALOPERIDOL 5 MG TABLET PO PRN (15:28)
[2018-10-25 17:08] VITALS: BP 122/64
[2018-10-25] MEDS: QUEtiapine FUMARATE 200 MG TABLET PO SCH (20:22)
[2018-10-26 05:27] VITALS: BP 104/65
[2018-10-26] MEDS: NICOTINE 21 MG/24 HOUR PATCH TD SCH (09:00)
[2018-10-26] MEDS: SERTRALINE HCL 100 MG TABLET PO SCH (09:37)
[2018-10-26] MEDS: BuPROPion HCL XL 150 MG ER TABLET PO SCH (09:37)
[2018-10-26] MEDS: LORazepam 2 MG TABLET PO PRN (09:38)
[2018-10-26] MEDS: HALOPERIDOL 5 MG TABLET PO PRN (09:38)
[2018-10-26] MEDS: DIVALPROEX SODIUM 500 MG ER TABLET PO SCH ×2 (09:38→16:58)
[2018-10-26 16:23] VITALS: BP 115/68
[2018-10-26] MEDS: QUEtiapine FUMARATE 200 MG TABLET PO SCH (20:45)
[2018-10-27 02:42] VITALS: BP 111/61
[2018-10-27] MEDS: DIVALPROEX SODIUM 500 MG ER TABLET PO SCH ×2 (08:32→16:25)
[2018-10-27] MEDS: BuPROPion HCL XL 150 MG ER TABLET PO SCH (08:33)
[2018-10-27] MEDS: SERTRALINE HCL 100 MG TABLET PO SCH (08:33)
[2018-10-27] MEDS: NICOTINE 21 MG/24 HOUR PATCH TD SCH (09:00)
[2018-10-27 09:14] VITALS: BP 103/65
[2018-10-27] MEDS: LORazepam 2 MG TABLET PO PRN (15:56)
[2018-10-27 16:09] VITALS: BP 105/70
[2018-10-27] MEDS: HALOPERIDOL 5 MG TABLET PO PRN (16:51)
[2018-10-27] MEDS ORDERED: DIVA-78 PO (17:54)
[2018-10-27] MEDS ORDERED: QUEtiapine FUMARATE 200 MG TABLET PO ONE (19:00)
== END 2018-10-27 19:00 | disposition home or self-care (01) | DRG 750 ==
LOC: B2S 15:36
PROVIDERS: ADMIT Psychiatry & Neurology Psychiatry; ATTEND Psychiatry & Neurology Psychiatry
DX: F25.0 Schizoaffective disorder, bipolar type (principal); R45.850 Homicidal ideations; E78.5 Hyperlipidemia, unspecified; F19.90 Other psychoactive substance use, unspecified, uncomplicated; F41.9 Anxiety disorder, unspecified; I10 Essential (primary) hypertension; J30.9 Allergic rhinitis, unspecified; J44.9 Chronic obstructive pulmonary disease, unspecified; K21.9 Gastro-esophageal reflux disease without esophagitis; K59.00 Constipation, unspecified; Z79.899 Other long term (current) drug therapy; Z81.8 Family history of other mental and behavioral disorders; Z91.19 Patient's noncompliance with other medical treatment and regimen; Z91.5 Personal history of self-harm; Z53.20 Procedure and treatment not carried out because of patient's decision for unspecified reasons
CPT/HCPCS: 83036; 84439; 84443; 87081; Q0162

== ENCOUNTER 2018-11-16 08:42 | Inpatient (IN) | payer MEDICAID, OTHER ==
[~2018-11-16] VITALS: Ht 177.8 cm; Wt 84.8 kg
[~2018-11-16 08:42] MED LIST changes: +DIVA-78 PO; -MUPI1OIN4 NS
[2018-11-16] MEDS ORDERED: CLON.5 PO (09:12)
[2018-11-16] MEDS ORDERED: KETOROLAC TROMETHAMINE 30 MG/ML VIAL IVP ONE (09:30)
[2018-11-16] MEDS ORDERED: SODIUM CHLORIDE 0.9% 1,000 ML IV ONE (09:30)
[2018-11-16 10:07] LABS: BASOPHILS % (AUTO) 0.8 % (0.0-2.0); EOSINOPHILS % (AUTO) 2.2 % (1.0-6.0); HEMATOCRIT 46.1 % (41-53); HEMOGLOBIN 16.2 g/dL (13.5-17.5); LYMPHOCYTES # (AUTO) 4.7 K/uL (1.0-4.8); LYMPHOCYTES % (AUTO) 52.8 % (22.0-44.0); MEAN CORPUSCULAR HEMOGLOBIN 30.8 pg (26.0-34.0); MEAN CORPUSCULAR HGB CONC 35.1 G/dL (31.0-37.0); MEAN CORPUSCULAR VOLUME 88 fL (80-100); MONOCYTES # (AUTO) 0.7 K/uL (0.1-1.0); MONOCYTES % (AUTO) 7.9 % (2.0-9.0); NEUTROPHILS # (AUTO) 3.2 K/uL (1.8-7.7); NEUTROPHILS % (AUTO) 36.3 % (40.0-70.0); PLATELET COUNT (AUTO) 397 K/uL (150-450); RED BLOOD CELL COUNT(AUTO) 5.26 MIL/uL (4.50-5.90); RED CELL DISTRIBUTION WIDTH 13.2 % (11.5-14.5)
[2018-11-16 10:19] LABS: ANION GAP 14 mmol/L (8-16); CALCIUM, TOTAL 9.4 mg/dL (8.8-10.5); CARBON DIOXIDE 22 mmol/L (22-29); CHLORIDE 103 mmol/L (98-107); CREATININE 0.94 mg/dL (0.60-1.30); GLOMERULAR FILTR. RATE CALC > 60 mL/min (>60); GLUCOSE,RANDOM 96 mg/dL (70-110); POTASSIUM 3.5 mmol/L (3.5-5.1); SODIUM SERUM 139 mmol/L (136-145); UREA NITROGEN, BLOOD 24 mg/dL (7-18)
[2018-11-16 10:30] LABS: ALANINE AMINOTRANSFERASE 23 U/L (12-78); ALBUMIN 4.1 g/dL (3.4-5.0); ALKALINE PHOSPHATASE 74 U/L (46-116); ASPARTATE AMINOTRANSFERASE 15 U/L (15-37); BILIRUBIN,TOTAL 0.3 mg/dL (0.1-1.0); LIPASE 92 U/L (73-393); TOTAL PROTEIN, SERUM 7.8 g/dL (6.4-8.2)
[2018-11-16] MEDS ORDERED: QUEtiapine FUMARATE 100 MG TABLET PO ONE (11:15)
[2018-11-16] MEDS ORDERED: LORazepam 2 MG TABLET PO ONE (11:15)
[2018-11-16] MEDS ORDERED: ACETAMINOPHEN 500 MG TABLET PO ONE (11:30)
[2018-11-16 12:02] LABS: VALPROIC ACID < 3 mcg/mL (50-100)
[2018-11-16] MEDS ORDERED: ACETAMINOPHEN 325 MG TABLET PO PRN (14:30)
[2018-11-16] MEDS ORDERED: IBUPROFEN 600 MG TABLET PO PRN (14:30)
[2018-11-16] MEDS ORDERED: CloNIDine HCL 0.1 MG TABLET PO PRN (14:30)
[2018-11-16] MEDS ORDERED: PETROLATUM,WHITE 71 GM JELLY TP PRN (14:30)
[2018-11-16] MEDS ORDERED: BACITRACIN 28.4 GM OINTMENT TP PRN (14:30)
[2018-11-16] MEDS ORDERED: ALBUTEROL SULFATE HFA 90 MCG/PUFF 8 GM INHALER IH PRN (14:30)
[2018-11-16] MEDS ORDERED: ONDANSETRON HCL 4 MG TABLET PO PRN (14:30)
[2018-11-16] MEDS ORDERED: BENZOCAINE/MENTHOL LOZENGE MM PRN (14:30)
[2018-11-16] MEDS ORDERED: LOPERAMIDE HCL 2 MG CAPSULE PO PRN (14:30)
[2018-11-16] MEDS ORDERED: MAG HYDROX/AL HYDROX/SIMETH ES 30 ML SUSPENSION UDCUP PO PRN (14:30)
[2018-11-16] MEDS ORDERED: PNEUMOCOCCAL VACCINE POLYVALENT 0.5 ML VIAL [PPSV23] IM ONE (14:45)
[2018-11-16 15:03] VITALS: BP 115/84
[2018-11-16 15:24] LABS: AMPHET/METH SCREEN,URINE NEGATIVE (NEGATIVE); BARBITURATE SCREEN, URINE NEGATIVE (NEGATIVE); BENZODIAZEPINES SCREEN,URINE NEGATIVE (NEGATIVE); CANNABINOID SCREEN,URINE NEGATIVE (NEGATIVE); COCAINE SCREEN,URINE NEGATIVE (NEGATIVE); METHADONE SCREEN, URINE NEGATIVE (NEGATIVE); OPIATE SCREEN,URINE NEGATIVE (NEGATIVE); PHENCYCLIDINE SCREEN,URINE NEGATIVE (NEGATIVE)
[2018-11-16 15:51] LABS: APPEARANCE,URINE CLEAR (CLEAR); BILIRUBIN,URINE NEGATIVE (NEGATIVE); GLUCOSE, URINE (UA) NEGATIVE (NEGATIVE); KETONES,URINE NEGATIVE (NEGATIVE); LEUKOCYTE ESTERASE ,URINE NEGATIVE (NEGATIVE); NITRATE,URINE NEGATIVE (NEGATIVE); OCCULT BLOOD,URINE NEGATIVE (NEGATIVE); PH,URINE 8.5 (5.0-8.0); PROTEIN,URINE TRACE (NEGATIVE); UROBILINOGEN,URINE 0.2 mg/dL (<=1.0)
[2018-11-16 16:15] VITALS: BP 114/63
[2018-11-16] MEDS: DIVALPROEX SODIUM 500 MG ER TABLET PO SCH (17:00)
[2018-11-16] MEDS: QUEtiapine FUMARATE 200 MG TABLET PO SCH (20:41)
[2018-11-16] MEDS: ZOLPIDEM TARTRATE 10 MG TABLET PO PRN (22:24)
[2018-11-17 00:31] VITALS: BP 116/62
[2018-11-17] MEDS: LORazepam 2 MG TABLET PO PRN ×2 (01:58→20:12)
[2018-11-17] MEDS: HALOPERIDOL 5 MG TABLET PO PRN ×2 (01:58→20:12)
[2018-11-17 08:31] VITALS: BP 100/56
[2018-11-17] MEDS: NICOTINE 21 MG/24 HOUR PATCH TD SCH (08:46)
[2018-11-17] MEDS: BuPROPion HCL XL 150 MG ER TABLET PO SCH (08:46)
[2018-11-17] MEDS: SERTRALINE HCL 100 MG TABLET PO SCH (08:46)
[2018-11-17] MEDS: OMEPRAZOLE 20 MG CAPSULE PO SCH (08:46)
[2018-11-17] MEDS: DOCUSATE SODIUM 100 MG CAPSULE PO SCH (08:46)
[2018-11-17] MEDS: DIVALPROEX SODIUM 500 MG ER TABLET PO SCH ×2 (08:46→16:26)
[2018-11-17 09:29] LABS: AMPHET/METH SCREEN,URINE NEGATIVE (NEGATIVE); BARBITURATE SCREEN, URINE NEGATIVE (NEGATIVE); BENZODIAZEPINES SCREEN,URINE NEGATIVE (NEGATIVE); CANNABINOID SCREEN,URINE NEGATIVE (NEGATIVE); COCAINE SCREEN,URINE NEGATIVE (NEGATIVE); METHADONE SCREEN, URINE NEGATIVE (NEGATIVE); OPIATE SCREEN,URINE NEGATIVE (NEGATIVE)
[2018-11-17 09:36] LABS: PHENCYCLIDINE SCREEN,URINE NEGATIVE (NEGATIVE)
[2018-11-17 09:47] LABS: APPEARANCE,URINE CLEAR (CLEAR); BILIRUBIN,URINE NEGATIVE (NEGATIVE); GLUCOSE, URINE (UA) NEGATIVE (NEGATIVE); KETONES,URINE NEGATIVE (NEGATIVE); LEUKOCYTE ESTERASE ,URINE NEGATIVE (NEGATIVE); NITRATE,URINE NEGATIVE (NEGATIVE); OCCULT BLOOD,URINE NEGATIVE (NEGATIVE); PROTEIN,URINE TRACE (NEGATIVE); UROBILINOGEN,URINE 0.2 mg/dL (<=1.0)
[2018-11-17 16:28] VITALS: BP 119/72
[2018-11-17] MEDS: QUEtiapine FUMARATE 200 MG TABLET PO SCH (20:13)
[2018-11-17] MEDS: ZOLPIDEM TARTRATE 10 MG TABLET PO PRN (21:56)
[2018-11-18 04:41] VITALS: BP 106/72
[2018-11-18] MEDS: HALOPERIDOL 5 MG TABLET PO PRN (04:43)
[2018-11-18] MEDS: LORazepam 2 MG TABLET PO PRN (04:43)
[2018-11-18] MEDS: BuPROPion HCL XL 150 MG ER TABLET PO SCH (08:41)
[2018-11-18] MEDS: DIVALPROEX SODIUM 500 MG ER TABLET PO SCH ×2 (08:41→16:22)
[2018-11-18] MEDS: SERTRALINE HCL 100 MG TABLET PO SCH (08:41)
[2018-11-18] MEDS: OMEPRAZOLE 20 MG CAPSULE PO SCH (08:41)
[2018-11-18] MEDS: DOCUSATE SODIUM 100 MG CAPSULE PO SCH (08:41)
[2018-11-18] MEDS: NICOTINE 21 MG/24 HOUR PATCH TD SCH (08:42)
[2018-11-18 09:11] VITALS: BP 102/68
[2018-11-18 16:39] VITALS: BP 100/68
[2018-11-18] MEDS: QUEtiapine FUMARATE 200 MG TABLET PO SCH (20:16)
[2018-11-18] MEDS: ZOLPIDEM TARTRATE 10 MG TABLET PO PRN (22:30)
[2018-11-19 00:30] VITALS: BP 111/77
[2018-11-19] MEDS: LORazepam 2 MG TABLET PO PRN ×2 (00:47→21:27)
[2018-11-19] MEDS: HALOPERIDOL 5 MG TABLET PO PRN ×2 (01:57→22:09)
[2018-11-19 08:12] VITALS: BP 105/61
[2018-11-19] MEDS: BuPROPion HCL XL 150 MG ER TABLET PO SCH (08:18)
[2018-11-19] MEDS: DOCUSATE SODIUM 100 MG CAPSULE PO SCH (08:19)
[2018-11-19] MEDS: OMEPRAZOLE 20 MG CAPSULE PO SCH (08:19)
[2018-11-19] MEDS: SERTRALINE HCL 100 MG TABLET PO SCH (08:19)
[2018-11-19] MEDS: DIVALPROEX SODIUM 500 MG ER TABLET PO SCH ×2 (08:19→16:15)
[2018-11-19] MEDS: NICOTINE 21 MG/24 HOUR PATCH TD SCH (08:20)
[2018-11-19] MEDS: MUPIROCIN CALCIUM 2% 22 GM OINTMENT NASAL SCH (16:15)
[2018-11-19 16:24] VITALS: BP 109/60
[2018-11-19] MEDS: QUEtiapine FUMARATE 200 MG TABLET PO SCH (20:33)
[2018-11-19] MEDS: MAGNESIUM HYDROXIDE SUSPENSION 30 ML UDCUP PO PRN (22:09)
[2018-11-19] MEDS: ZOLPIDEM TARTRATE 10 MG TABLET PO PRN (22:09)
[2018-11-20 00:34] VITALS: BP 113/71
[2018-11-20] MEDS: HALOPERIDOL 5 MG TABLET PO PRN ×2 (02:20→23:21)
[2018-11-20] MEDS: LORazepam 2 MG TABLET PO PRN ×2 (02:20→21:44)
[2018-11-20] MEDS: BuPROPion HCL XL 150 MG ER TABLET PO SCH (08:48)
[2018-11-20] MEDS: OMEPRAZOLE 20 MG CAPSULE PO SCH (08:48)
[2018-11-20] MEDS: NICOTINE 21 MG/24 HOUR PATCH TD SCH (08:48)
[2018-11-20] MEDS: SERTRALINE HCL 100 MG TABLET PO SCH (08:48)
[2018-11-20] MEDS: DOCUSATE SODIUM 100 MG CAPSULE PO SCH (08:48)
[2018-11-20] MEDS: DIVALPROEX SODIUM 500 MG ER TABLET PO SCH ×2 (09:22→16:46)
[2018-11-20] MEDS: MUPIROCIN CALCIUM 2% 22 GM OINTMENT NASAL SCH ×2 (09:23→16:46)
[2018-11-20 17:02] VITALS: BP 101/67
[2018-11-20] MEDS: QUEtiapine FUMARATE 200 MG TABLET PO SCH (20:45)
[2018-11-20] MEDS: ZOLPIDEM TARTRATE 10 MG TABLET PO PRN (21:44)
[2018-11-21 00:06] VITALS: BP 106/70
[2018-11-21] MEDS: HALOPERIDOL 5 MG TABLET PO PRN (05:14)
[2018-11-21] MEDS: LORazepam 2 MG TABLET PO PRN (05:14)
[2018-11-21] MEDS: MUPIROCIN CALCIUM 2% 22 GM OINTMENT NASAL SCH ×2 (08:13→16:28)
[2018-11-21] MEDS: DIVALPROEX SODIUM 500 MG ER TABLET PO SCH ×2 (08:13→16:28)
[2018-11-21] MEDS: BuPROPion HCL XL 150 MG ER TABLET PO SCH (08:13)
[2018-11-21] MEDS: SERTRALINE HCL 100 MG TABLET PO SCH (08:13)
[2018-11-21] MEDS: OMEPRAZOLE 20 MG CAPSULE PO SCH (08:13)
[2018-11-21] MEDS: NICOTINE 21 MG/24 HOUR PATCH TD SCH ×2 (08:13→09:00)
[2018-11-21] MEDS: DOCUSATE SODIUM 100 MG CAPSULE PO SCH (08:13)
[2018-11-21 08:31] VITALS: BP 108/68
[2018-11-21 19:14] VITALS: BP 90/60
[2018-11-21] MEDS: QUEtiapine FUMARATE 200 MG TABLET PO SCH (20:58)
[2018-11-22] MEDS: HALOPERIDOL 5 MG TABLET PO PRN ×2 (00:09→04:50)
[2018-11-22 00:10] VITALS: BP 110/65
[2018-11-22] MEDS: ZOLPIDEM TARTRATE 10 MG TABLET PO PRN ×2 (00:10→22:01)
[2018-11-22] MEDS: LORazepam 2 MG TABLET PO PRN ×2 (04:51→23:37)
[2018-11-22] MEDS: BuPROPion HCL XL 150 MG ER TABLET PO SCH (08:49)
[2018-11-22] MEDS: DIVALPROEX SODIUM 500 MG ER TABLET PO SCH ×2 (08:49→16:37)
[2018-11-22] MEDS: MUPIROCIN CALCIUM 2% 22 GM OINTMENT NASAL SCH ×2 (08:49→16:37)
[2018-11-22] MEDS: OMEPRAZOLE 20 MG CAPSULE PO SCH (08:49)
[2018-11-22] MEDS: DOCUSATE SODIUM 100 MG CAPSULE PO SCH (08:49)
[2018-11-22] MEDS: SERTRALINE HCL 100 MG TABLET PO SCH (08:49)
[2018-11-22] MEDS: NICOTINE 21 MG/24 HOUR PATCH TD SCH (08:50)
[2018-11-22 08:51] VITALS: BP 108/81
[2018-11-22 16:01] VITALS: BP 103/61
[2018-11-22] MEDS: QUEtiapine FUMARATE 200 MG TABLET PO SCH (20:31)
[2018-11-23 00:30] VITALS: BP 106/64
[2018-11-23] MEDS: MAGNESIUM HYDROXIDE SUSPENSION 30 ML UDCUP PO PRN ×2 (00:41→17:02)
[2018-11-23] MEDS: DOCUSATE SODIUM 100 MG CAPSULE PO SCH (09:00)
[2018-11-23] MEDS: SERTRALINE HCL 100 MG TABLET PO SCH (09:00)
[2018-11-23] MEDS: OMEPRAZOLE 20 MG CAPSULE PO SCH (09:08)
[2018-11-23] MEDS: DIVALPROEX SODIUM 500 MG ER TABLET PO SCH ×2 (09:08→16:02)
[2018-11-23] MEDS: BuPROPion HCL XL 150 MG ER TABLET PO SCH (09:08)
[2018-11-23] MEDS: NICOTINE 21 MG/24 HOUR PATCH TD SCH (09:09)
[2018-11-23] MEDS: MUPIROCIN CALCIUM 2% 22 GM OINTMENT NASAL SCH ×2 (09:10→16:02)
[2018-11-23 09:26] VITALS: BP 103/69
[2018-11-23 16:29] VITALS: BP 95/56
[2018-11-23] MEDS: LORazepam 2 MG TABLET PO PRN ×2 (17:02→21:51)
[2018-11-23] MEDS: HALOPERIDOL 5 MG TABLET PO PRN (17:02)
[2018-11-23] MEDS: ZOLPIDEM TARTRATE 10 MG TABLET PO PRN (20:49)
[2018-11-23] MEDS: QUEtiapine FUMARATE 200 MG TABLET PO SCH (20:49)
[2018-11-24 06:00] VITALS: BP 95/60
[2018-11-24 08:26] VITALS: BP 98/60
[2018-11-24] MEDS: BuPROPion HCL XL 150 MG ER TABLET PO SCH (08:28)
[2018-11-24] MEDS: DOCUSATE SODIUM 100 MG CAPSULE PO SCH (08:29)
[2018-11-24] MEDS: MUPIROCIN CALCIUM 2% 22 GM OINTMENT NASAL SCH (08:29)
[2018-11-24] MEDS: SERTRALINE HCL 100 MG TABLET PO SCH (08:29)
[2018-11-24] MEDS: OMEPRAZOLE 20 MG CAPSULE PO SCH (08:29)
[2018-11-24] MEDS: DIVALPROEX SODIUM 500 MG ER TABLET PO SCH ×2 (08:29→16:33)
[2018-11-24] MEDS: NICOTINE 21 MG/24 HOUR PATCH TD SCH (09:00)
[2018-11-24] MEDS ORDERED: DIVA500T52 PO (09:21)
[2018-11-24 16:09] VITALS: BP 100/61
[2018-11-24] MEDS: LORazepam 2 MG TABLET PO PRN (17:25)
[2018-11-24] MEDS: QUEtiapine FUMARATE 200 MG TABLET PO SCH (20:15)
[2018-11-25 00:06] VITALS: BP 125/83
[2018-11-25] MEDS: HALOPERIDOL 5 MG TABLET PO PRN ×2 (00:06→04:41)
[2018-11-25] MEDS: LORazepam 2 MG TABLET PO PRN ×2 (00:06→04:41)
[2018-11-25] MEDS: OMEPRAZOLE 20 MG CAPSULE PO SCH (08:08)
[2018-11-25] MEDS: DOCUSATE SODIUM 100 MG CAPSULE PO SCH (08:08)
[2018-11-25] MEDS: BuPROPion HCL XL 150 MG ER TABLET PO SCH (08:08)
[2018-11-25] MEDS: SERTRALINE HCL 100 MG TABLET PO SCH (08:08)
[2018-11-25] MEDS: DIVALPROEX SODIUM 500 MG ER TABLET PO SCH (08:08)
[2018-11-25 08:17] VITALS: BP 120/64
[2018-11-25] MEDS: NICOTINE 21 MG/24 HOUR PATCH TD SCH (08:28)
== END 2018-11-25 13:34 | disposition home or self-care (01) | DRG 750 ==
LOC: EDSTATUS 08:42 → BV PSY EVL 09:02 → B2S 12:40
PROVIDERS: ADMIT Psychiatry & Neurology Psychiatry; ATTEND Psychiatry & Neurology Psychiatry
DX: F20.0 Paranoid schizophrenia (principal); E78.5 Hyperlipidemia, unspecified; F32.9 Major depressive disorder, single episode, unspecified; F43.10 Post-traumatic stress disorder, unspecified; G47.00 Insomnia, unspecified; I10 Essential (primary) hypertension; J44.9 Chronic obstructive pulmonary disease, unspecified; K21.9 Gastro-esophageal reflux disease without esophagitis; K59.00 Constipation, unspecified; F15.10 Other stimulant abuse, uncomplicated; F17.200 Nicotine dependence, unspecified, uncomplicated; Z22.322 Carrier or suspected carrier of Methicillin resistant Staphylococcus aureus
CPT/HCPCS: 74176; 80307; 87081; 93005; 96374; G0480; J1885; J7030

== ENCOUNTER 2018-12-06 17:59 | Inpatient (IN) | payer MEDICAID ==
[~2018-12-06] VITALS: Ht 182.9 cm; Wt 101.2 kg
[~2018-12-06 17:59] MED LIST changes: -DIVA-78 PO; +DIVA500T52 PO
[2018-12-06] MEDS ORDERED: PNEUMOCOCCAL VACCINE POLYVALENT 0.5 ML VIAL [PPSV23] IM ONE (19:00)
[2018-12-06 19:03] VITALS: BP 115/76
[2018-12-06] MEDS: LORazepam 2 MG TABLET PO PRN (19:37)
[2018-12-06] MEDS: HALOPERIDOL 5 MG TABLET PO PRN (19:37)
[2018-12-06 21:17] VITALS: BP 147/87
[2018-12-06] MEDS: ZOLPIDEM TARTRATE 10 MG TABLET PO PRN (21:26)
[2018-12-06] MEDS ORDERED: ONDANSETRON HCL 4 MG TABLET PO PRN (22:30)
[2018-12-06] MEDS ORDERED: PETROLATUM,WHITE 28 GM JELLY TP PRN (22:30)
[2018-12-06] MEDS ORDERED: CloNIDine HCL 0.1 MG TABLET PO PRN (22:30)
[2018-12-06] MEDS ORDERED: LOPERAMIDE HCL 2 MG CAPSULE PO PRN (22:30)
[2018-12-06] MEDS ORDERED: BACITRACIN 28.4 GM OINTMENT TP PRN (22:30)
[2018-12-06] MEDS ORDERED: ALBUTEROL SULFATE HFA 90 MCG/PUFF 8 GM INHALER IH PRN (22:30)
[2018-12-06] MEDS ORDERED: MAG HYDROX/AL HYDROX/SIMETH ES 30 ML SUSPENSION UDCUP PO PRN (22:30)
[2018-12-06] MEDS ORDERED: BENZOCAINE/MENTHOL LOZENGE MM PRN (22:30)
[2018-12-06] MEDS ORDERED: ACETAMINOPHEN 325 MG TABLET PO PRN (22:30)
[2018-12-07] MEDS: LORazepam 2 MG TABLET PO PRN ×2 (03:29→12:48)
[2018-12-07] MEDS: HALOPERIDOL 5 MG TABLET PO PRN (03:29)
[2018-12-07 03:31] VITALS: BP 110/67
[2018-12-07 08:08] LABS: BASOPHILS % (AUTO) 0.7 % (0.0-2.0); HEMOGLOBIN 13.6 g/dL (13.5-17.5); LYMPHOCYTES # (AUTO) 2.2 K/uL (1.0-4.8); LYMPHOCYTES % (AUTO) 43.6 % (22.0-44.0); MEAN CORPUSCULAR HEMOGLOBIN 30.5 pg (26.0-34.0); MEAN CORPUSCULAR HGB CONC 33.9 G/dL (31.0-37.0); MEAN CORPUSCULAR VOLUME 90 fL (80-100); MONOCYTES # (AUTO) 0.6 K/uL (0.1-1.0); MONOCYTES % (AUTO) 12.4 % (2.0-9.0); NEUTROPHILS # (AUTO) 1.8 K/uL (1.8-7.7); NEUTROPHILS % (AUTO) 36.3 % (40.0-70.0); PLATELET COUNT (AUTO) 276 K/uL (150-450); RED BLOOD CELL COUNT(AUTO) 4.44 MIL/uL (4.50-5.90); RED CELL DISTRIBUTION WIDTH 13.3 % (11.5-14.5)
[2018-12-07 08:13] LABS: HEMOGLOBIN A1C 5.5 % (4.5-6.2)
[2018-12-07 08:39] LABS: ALANINE AMINOTRANSFERASE 22 U/L (12-78); ALBUMIN 3.5 g/dL (3.4-5.0); ALKALINE PHOSPHATASE 67 U/L (46-116); ANION GAP 9 mmol/L (8-16); ASPARTATE AMINOTRANSFERASE 18 U/L (15-37); BILIRUBIN,TOTAL 0.4 mg/dL (0.1-1.0); CALCIUM, TOTAL 8.9 mg/dL (8.8-10.5); CARBON DIOXIDE 26 mmol/L (22-29); CHLORIDE 106 mmol/L (98-107); CHOL/HDL RATIO 4.6 (4.2-7.3); CHOLESTEROL 166 mg/dL (131-200); CREATININE 0.93 mg/dL (0.60-1.30); FREE T4 (FREE THYROXINE) 0.74 ng/dL (0.76-1.46); GLOMERULAR FILTR. RATE CALC > 60 mL/min (>60); GLUCOSE,RANDOM 82 mg/dL (70-110); HDL CHOLESTEROL 36 mg/dL (40-60); LDL CHOL (CALC.) 120 mg/dL (0-130); SODIUM SERUM 141 mmol/L (136-145); THYROID STIMULATING HORMONE 5.03 uIU/mL (0.36-3.74); TOTAL PROTEIN, SERUM 6.1 g/dL (6.4-8.2); TRIGLYCERIDES 50 mg/dL (15-150); UREA NITROGEN, BLOOD 23 mg/dL (7-18)
[2018-12-07 08:44] VITALS: BP 109/55
[2018-12-07] MEDS: NICOTINE 21 MG/24 HOUR PATCH TD SCH (09:00)
[2018-12-07] MEDS ORDERED: DOCUSATE SODIUM 100 MG CAPSULE PO SCH ×2 (09:00)
[2018-12-07] MEDS ORDERED: OMEPRAZOLE 20 MG CAPSULE PO SCH ×2 (09:00)
[2018-12-07] MEDS ORDERED: SERTRALINE HCL 100 MG TABLET PO SCH (12:15)
[2018-12-07 12:45] VITALS: BP 110/64
[2018-12-07] MEDS: BuPROPion HCL XL 150 MG ER TABLET PO SCH (12:48)
[2018-12-07 16:05] VITALS: BP 115/59
[2018-12-07] MEDS: DIVALPROEX SODIUM 500 MG ER TABLET PO SCH (16:42)
[2018-12-07] MEDS: QUEtiapine FUMARATE 200 MG TABLET PO SCH (20:44)
[2018-12-08 05:18] VITALS: BP 99/47
[2018-12-08] MEDS: LEVOTHYROXINE SODIUM 25 MCG TABLET PO SCH (07:05)
[2018-12-08 08:01] VITALS: BP 98/56
[2018-12-08] MEDS: NICOTINE 21 MG/24 HOUR PATCH TD SCH (08:16)
[2018-12-08] MEDS: BuPROPion HCL XL 150 MG ER TABLET PO SCH (08:16)
[2018-12-08] MEDS: DIVALPROEX SODIUM 500 MG ER TABLET PO SCH ×2 (08:16→16:39)
[2018-12-08] MEDS: LORazepam 2 MG TABLET PO PRN ×2 (10:27→18:46)
[2018-12-08] MEDS: HALOPERIDOL 5 MG TABLET PO PRN ×2 (10:27→18:46)
[2018-12-08 16:26] VITALS: BP 112/70
[2018-12-08] MEDS: MAGNESIUM HYDROXIDE SUSPENSION 30 ML UDCUP PO PRN (20:06)
[2018-12-08] MEDS: QUEtiapine FUMARATE 200 MG TABLET PO SCH (20:06)
[2018-12-09] VITALS: BP 118/70
[2018-12-09] MEDS: LEVOTHYROXINE SODIUM 25 MCG TABLET PO SCH (06:48)
[2018-12-09 08:14] VITALS: BP 102/70
[2018-12-09] MEDS: BuPROPion HCL XL 150 MG ER TABLET PO SCH (08:46)
[2018-12-09] MEDS: DIVALPROEX SODIUM 500 MG ER TABLET PO SCH ×2 (08:46→16:03)
[2018-12-09] MEDS: NICOTINE 21 MG/24 HOUR PATCH TD SCH (09:00)
[2018-12-09] MEDS: LORazepam 2 MG TABLET PO PRN (15:19)
[2018-12-09] MEDS: HALOPERIDOL 5 MG TABLET PO PRN (15:19)
[2018-12-09 16:03] VITALS: BP 108/77
[2018-12-09] MEDS: QUEtiapine FUMARATE 200 MG TABLET PO SCH (20:00)
[2018-12-09] MEDS: ZOLPIDEM TARTRATE 10 MG TABLET PO PRN (21:03)
[2018-12-09] MEDS: IBUPROFEN 600 MG TABLET PO PRN (21:57)
[2018-12-10] MEDS: LEVOTHYROXINE SODIUM 25 MCG TABLET PO SCH (06:50)
[2018-12-10 06:52] VITALS: BP 98/67
[2018-12-10] MEDS: BuPROPion HCL XL 150 MG ER TABLET PO SCH (08:16)
[2018-12-10] MEDS: DIVALPROEX SODIUM 500 MG ER TABLET PO SCH ×2 (08:16→16:17)
[2018-12-10] MEDS: NICOTINE 21 MG/24 HOUR PATCH TD SCH ×2 (09:00→14:33)
[2018-12-10 10:20] VITALS: BP 103/60
[2018-12-10] MEDS: HALOPERIDOL 5 MG TABLET PO PRN ×2 (12:04→17:19)
[2018-12-10] MEDS: LORazepam 2 MG TABLET PO PRN ×2 (12:04→17:20)
[2018-12-10 16:01] VITALS: BP 104/67
[2018-12-10] MEDS: QUEtiapine FUMARATE 200 MG TABLET PO SCH (20:07)
[2018-12-10] MEDS: ZOLPIDEM TARTRATE 10 MG TABLET PO PRN (21:29)
[2018-12-11 00:37] VITALS: BP 110/68
[2018-12-11] MEDS: LEVOTHYROXINE SODIUM 25 MCG TABLET PO SCH (06:30)
[2018-12-11 08:25] VITALS: BP 120/66
[2018-12-11] MEDS: BuPROPion HCL XL 150 MG ER TABLET PO SCH (08:37)
[2018-12-11] MEDS: DIVALPROEX SODIUM 500 MG ER TABLET PO SCH ×2 (08:37→16:13)
[2018-12-11] MEDS: NICOTINE 21 MG/24 HOUR PATCH TD SCH (09:00)
[2018-12-11] MEDS: HALOPERIDOL 5 MG TABLET PO PRN (13:03)
[2018-12-11] MEDS: LORazepam 2 MG TABLET PO PRN (13:03)
[2018-12-11 16:10] VITALS: BP 104/68
[2018-12-11] MEDS: MAGNESIUM HYDROXIDE SUSPENSION 30 ML UDCUP PO PRN (19:39)
[2018-12-11] MEDS: QUEtiapine FUMARATE 200 MG TABLET PO SCH (20:07)
[2018-12-11] MEDS: ZOLPIDEM TARTRATE 10 MG TABLET PO PRN (21:21)
[2018-12-12 00:18] VITALS: BP 123/80
[2018-12-12] MEDS: LEVOTHYROXINE SODIUM 25 MCG TABLET PO SCH (06:30)
[2018-12-12 08:09] VITALS: BP 106/60
[2018-12-12] MEDS: NICOTINE 21 MG/24 HOUR PATCH TD SCH (09:00)
[2018-12-12] MEDS: BuPROPion HCL XL 150 MG ER TABLET PO SCH (09:15)
[2018-12-12] MEDS: DIVALPROEX SODIUM 500 MG ER TABLET PO SCH ×2 (09:15→16:07)
[2018-12-12] MEDS: HALOPERIDOL 5 MG TABLET PO PRN ×2 (10:05→18:22)
[2018-12-12] MEDS: LORazepam 2 MG TABLET PO PRN ×3 (10:05→21:26)
[2018-12-12] MEDS: MAGNESIUM HYDROXIDE SUSPENSION 30 ML UDCUP PO PRN ×2 (10:05→17:03)
[2018-12-12 16:13] VITALS: BP 113/67
[2018-12-12] MEDS ORDERED: MAGNESIUM CITRATE 300 ML ORAL SOLUTION PO ONE (18:30)
[2018-12-12] MEDS: QUEtiapine FUMARATE 200 MG TABLET PO SCH (20:07)
[2018-12-12] MEDS ORDERED: NICOTINE 21 MG/24 HOUR PATCH TD PRN (20:45)
[2018-12-12] MEDS: ZOLPIDEM TARTRATE 10 MG TABLET PO PRN (21:32)
[2018-12-13 00:25] VITALS: BP 103/96
[2018-12-13] MEDS: LEVOTHYROXINE SODIUM 25 MCG TABLET PO SCH (06:30)
[2018-12-13 08:27] VITALS: BP 111/64
[2018-12-13] MEDS: BuPROPion HCL XL 150 MG ER TABLET PO SCH (08:28)
[2018-12-13] MEDS: DIVALPROEX SODIUM 500 MG ER TABLET PO SCH ×2 (08:28→16:46)
[2018-12-13] MEDS: HALOPERIDOL 5 MG TABLET PO PRN ×2 (13:32→21:42)
[2018-12-13] MEDS: IBUPROFEN 600 MG TABLET PO PRN (13:33)
[2018-12-13] MEDS: LORazepam 2 MG TABLET PO PRN (13:33)
[2018-12-13 16:35] VITALS: BP 108/68
[2018-12-13] MEDS: MAGNESIUM HYDROXIDE SUSPENSION 30 ML UDCUP PO PRN (20:38)
[2018-12-13] MEDS: QUEtiapine FUMARATE 200 MG TABLET PO SCH (20:39)
[2018-12-13] MEDS: ZOLPIDEM TARTRATE 10 MG TABLET PO PRN (21:42)
[2018-12-14 00:18] VITALS: BP 103/66
[2018-12-14] MEDS: LORazepam 2 MG TABLET PO PRN ×2 (00:27→11:12)
[2018-12-14] MEDS: LEVOTHYROXINE SODIUM 25 MCG TABLET PO SCH (06:30)
[2018-12-14 08:00] VITALS: BP 116/86
[2018-12-14] MEDS: BuPROPion HCL XL 150 MG ER TABLET PO SCH (08:54)
[2018-12-14] MEDS: DIVALPROEX SODIUM 500 MG ER TABLET PO SCH ×2 (08:54→16:14)
[2018-12-14] MEDS: HALOPERIDOL 5 MG TABLET PO PRN (11:12)
[2018-12-14 16:43] VITALS: BP 102/64
[2018-12-14] MEDS: QUEtiapine FUMARATE 200 MG TABLET PO SCH (20:23)
[2018-12-14] MEDS: ZOLPIDEM TARTRATE 10 MG TABLET PO PRN (22:13)
[2018-12-15 00:53] VITALS: BP 122/82
[2018-12-15] MEDS: LEVOTHYROXINE SODIUM 25 MCG TABLET PO SCH ×3 (06:30→07:50)
[2018-12-15] MEDS ORDERED: LEVO25TA9 PO (07:51)
[2018-12-15 08:56] VITALS: BP 118/61
[2018-12-15] MEDS: BuPROPion HCL XL 150 MG ER TABLET PO SCH (09:16)
[2018-12-15] MEDS: DIVALPROEX SODIUM 500 MG ER TABLET PO SCH (09:16)
== END 2018-12-15 10:10 | disposition home or self-care (01) | DRG 750 ==
LOC: B3A 18:41 → B2S 12-07 20:39
PROVIDERS: ADMIT Psychiatry & Neurology Psychiatry; ATTEND Psychiatry & Neurology Psychiatry
DX: F20.0 Paranoid schizophrenia (principal); R45.850 Homicidal ideations; F12.90 Cannabis use, unspecified, uncomplicated; F17.200 Nicotine dependence, unspecified, uncomplicated; F15.10 Other stimulant abuse, uncomplicated; G47.00 Insomnia, unspecified; J44.9 Chronic obstructive pulmonary disease, unspecified; K21.9 Gastro-esophageal reflux disease without esophagitis; K59.00 Constipation, unspecified; F19.10 Other psychoactive substance abuse, uncomplicated; F41.9 Anxiety disorder, unspecified
CPT/HCPCS: 83036; 84439; 84443; 87081

== ENCOUNTER 2024-05-28 00:04 | Emergency (ER) | payer MEDICAID, OTHER ==
[~2024-05-28] VITALS: Ht 182.9 cm; Wt 145.4 kg
[~2024-05-28 00:04] MED LIST changes: +DIVA-153 PO; -DIVA500T52 PO; +DULO-113 PO; +GABA800T PO; +HYDR50CA7 PO; +LEVO25TA9 PO; +OLAN10TA74 PO; +PROP10TA73 PO; -QUET400T PO; -SERT100T12 PO
[2024-05-28 00:30] VITALS: BP 139/96; PULSE 86; RESP 15; TEMP 98.1; O2SAT 95
[2024-05-28 02:16] LABS: COVID AG,FIA SOURCE NASAL SWAB
[2024-05-28 02:20] LABS: ANION GAP 12 mmol/L (8-16); CALCIUM, TOTAL 8.7 mg/dL (8.8-10.5); CARBON DIOXIDE 25 mmol/L (22-29); CHLORIDE 103 mmol/L (98-107); CREATININE 0.76 mg/dL (0.60-1.30); GLOMERULAR FILTR. RATE CALC > 60 mL/min (>60); GLUCOSE,RANDOM 106 mg/dL (70-110); POTASSIUM 3.9 mmol/L (3.5-5.1); SODIUM SERUM 140 mmol/L (136-145); UREA NITROGEN, BLOOD 14 mg/dL (7-18)
[2024-05-28 02:35] LABS: ALCOHOL, BLOOD (SERUM) < 3 mg/dL (0-10)
[2024-05-28 02:37] LABS: BASOPHILS % (AUTO) 0.7 % (0.0-2.0); EOSINOPHILS % (AUTO) 2.9 % (1.0-6.0); HEMATOCRIT 45.6 % (41-53); HEMOGLOBIN 15.2 g/dL (13.5-17.5); LYMPHOCYTES # (AUTO) 3.3 K/uL (1.0-4.8); LYMPHOCYTES % (AUTO) 33.1 % (22.0-44.0); MEAN CORPUSCULAR HEMOGLOBIN 30.1 pg (26.0-34.0); MEAN CORPUSCULAR HGB CONC 33.3 G/dL (31.0-37.0); MEAN CORPUSCULAR VOLUME 90 fL (80-100); MONOCYTES # (AUTO) 1.1 K/uL (0.1-1.0); MONOCYTES % (AUTO) 11.1 % (2.0-9.0); NEUTROPHILS # (AUTO) 5.2 K/uL (1.8-7.7); NEUTROPHILS % (AUTO) 52.2 % (40.0-70.0); PLATELET COUNT (AUTO) 271 K/uL (150-450); RED BLOOD CELL COUNT(AUTO) 5.04 MIL/uL (4.50-5.90); RED CELL DISTRIBUTION WIDTH 14.7 % (11.5-14.5); WHITE BLOOD COUNT (AUTO) 9.9 K/uL (4.5-11.0)
[2024-05-28 02:39] LABS: SARS-COV2 (COVID) ANTIGEN,FIA Negative (Negative)
[2024-05-28 03:24] LABS: ALCOHOL, URINE DRUG SCREEN NEGATIVE (NEGATIVE); AMPHET/METH SCREEN,URINE NEGATIVE (NEGATIVE); BARBITURATE SCREEN, URINE NEGATIVE (NEGATIVE); BENZODIAZEPINES SCREEN,URINE NEGATIVE (NEGATIVE); CANNABINOID SCREEN,URINE POSITIVE (NEGATIVE); COCAINE SCREEN,URINE NEGATIVE (NEGATIVE); METHADONE SCREEN, URINE NEGATIVE (NEGATIVE); OPIATE SCREEN,URINE NEGATIVE (NEGATIVE); PHENCYCLIDINE SCREEN,URINE NEGATIVE (NEGATIVE)
== END 2024-05-28 05:09 ==
LOC: EMS 00:05
DX: F25.9 Schizoaffective disorder, unspecified (principal); F32.9 Major depressive disorder, single episode, unspecified; F10.10 Alcohol abuse, uncomplicated; E03.9 Hypothyroidism, unspecified; Z87.891 Personal history of nicotine dependence; Z20.822 Contact with and (suspected) exposure to COVID-19
CPT/HCPCS: 99283; 87426; 80048; 85025; 36415; 80307; G0480